=== PATIENT | female | born 1985 | race Caucasian/White ===

== ENCOUNTER 2016-12-19 02:20 | Inpatient (IN) | payer MEDICAID, OTHER ==
[~2016-12-19] VITALS: Ht 160 cm; Wt 58.9 kg
[2016-12-19 03:03] LABS: AUTOMATED NEUTROPHIL # 5.5 TH/MM3 (1.8-7.7); BASOPHIL % 0.4 % (0.0-2.0); EOSINOPHIL # 0.2 TH/MM3 (0-0.4); EOSINOPHIL % 2.2 % (0.0-4.0); HEMATOCRIT 31.8 % (35.0-46.0); HEMO FLAGS DIFF FINAL; LYMPH % 13.1 % (9.0-44.0); LYMPHOCYTE # 0.9 TH/MM3 (1.0-4.8); MEAN CELL VOLUME 91.2 FL (80.0-100.0); MEAN CORPUSCULAR HEMOGLOBIN 30.9 PG (27.0-34.0); MEAN CORPUSCULAR HGB CONC 33.9 % (32.0-36.0); MONO % 8.2 % (0.0-8.0); NEUT % 76.1 % (16.0-70.0); PLATELET COUNT 440 TH/MM3 (150-450); RED BLOOD COUNT 3.49 MIL/MM3 (4.00-5.30); RED CELL DISTRIBUTION WIDTH 12.7 % (11.6-17.2); WHITE BLOOD COUNT 7.3 TH/MM3 (4.0-11.0)
[2016-12-19 03:10] VITALS: BP 131/76; PULSE 99; RESP 16; TEMP 98; O2SAT 97
[2016-12-19 03:10] LABS: AMPHETAMINE, URINE POS (NEG); BARBITURATES, URINE NEG (NEG); COCAINE, URINE POS (NEG)
[2016-12-19 03:19] LABS: ALT (GPT) 39 U/L (10-53); ANION GAP 11 MEQ/L (5-15); AST (GOT) 43 U/L (15-37); BICARBONATE 23.5 MEQ/L (21.0-32.0); BLOOD UREA NITROGEN 8 MG/DL (7-18); CHLORIDE 106 MEQ/L (98-107); GLOMERULAR FILTRATION RATE 72 ML/MIN (>89); POTASSIUM 3.5 MEQ/L (3.5-5.1); SODIUM (NA) 140 MEQ/L (136-145)
--- NOTE | 2016-12-19 03:20 | PD ---
HPI Chief Complaint: Psychiatric Symptoms Time Seen by Provider: 02:27 Travel History International Travel<30 days: No Contact w/Intl Traveler<30days: No Traveled to known affect area: No History of Present Illness HPI The patient is 31 years old and arrives as a Gan act. She was found talking to herself in her room by her roommates. Police observed multiple bottles of pills in rte patient's room, unknown medications. In ER patient offers no specific medical complaint aside from pain from handcuffs. She denies HI/SI. PFSH Past Medical History Medical History: Unable to Obtain Immunizations Current: Yes ?: Not Past Surgical History Surgical History: Unable to Obtain Social History Alcohol Use: Yes Tobacco Use: Yes Substance Use: Yes (DENIES) Allergies-Medications (Allergen,Severity, Reaction): Coded Allergies: No Known Allergies (Unverified , 12/19/16) Reported Meds & Prescriptions Reported Meds & Active Scripts Active Active Prescriptions or Reported Medications Unobtainable Review of Systems Except as stated in HPI: all other systems reviewed are Neg Physical Exam Narrative GENERAL: 31 yo F, WNWD, NAD SKIN: Warm and dry. HEAD: Atraumatic. Normocephalic. EYES: Pupils equal and round. No scleral icterus. No injection or drainage. ENT: No nasal bleeding or discharge. Mucous membranes dry. NECK: Trachea midline. No JVD. CARDIOVASCULAR: Regular rate and rhythm. RESPIRATORY: No accessory muscle use. Clear to auscultation. Breath sounds equal bilaterally. GASTROINTESTINAL: Abdomen soft, non-tender, nondistended. Hepatic and splenic margins not palpable. MUSCULOSKELETAL: Extremities without clubbing, cyanosis, or edema. No obvious deformities. NEUROLOGICAL: Awake and alert. No obvious cranial nerve deficits. Motor grossly within normal limits. Five out of 5 muscle strength in the arms and legs. Normal speech. PSYCHIATRIC: Appropriate mood and affect; insight and judgment normal. Data Data Last Documented VS Vital Signs Date Time Temp Pulse Resp B/P Pulse Ox O2 Delivery O2 Flow Rate FiO2 12/19/16 03:10 98.0 99 16 131/76 97 VS reviewed Orders Complete Blood Count With Diff (12/19/16 02:37) Comprehensive Metabolic Panel (12/19/16 02:37) Drug Screen, Random Urine (12/19/16 02:37) Electrocardiogram (12/19/16 02:37) Alcohol (Ethanol) (12/19/16 02:37) Salicylates (Aspirin) (12/19/16 02:37) Tylenol (Acetaminophen) (12/19/16 02:37) Psych Screen (12/19/16 02:37) Sodium Chlor 0.9% 1000 Ml Inj (Ns 1000 M (12/19/16 03:30) Ed Urine Pregnancytest Poc (12/19/16 03:18) Cath For Specimen (12/19/16 03:18) Labs Laboratory Tests Test 12/19/16 02:50 White Blood Count 7.3 TH/MM3 Red Blood Count 3.49 MIL/MM3 Hemoglobin 10.8 GM/DL Hematocrit 31.8 % Mean Corpuscular Volume 91.2 FL Mean Corpuscular Hemoglobin 30.9 PG Mean Corpuscular Hemoglobin 33.9 % Concent Red Cell Distribution Width 12.7 % Platelet Count 440 TH/MM3 Mean Platelet Volume 6.9 FL Neutrophils (%) (Auto) 76.1 % Lymphocytes (%) (Auto) 13.1 % Monocytes (%) (Auto) 8.2 % Eosinophils (%) (Auto) 2.2 % Basophils (%) (Auto) 0.4 % Neutrophils # (Auto) 5.5 TH/MM3 Lymphocytes # (Auto) 0.9 TH/MM3 Monocytes # (Auto) 0.6 TH/MM3 Eosinophils # (Auto) 0.2 TH/MM3 Basophils # (Auto) 0.0 TH/MM3 CBC Comment DIFF FINAL Differential Comment Sodium Level 140 MEQ/L Potassium Level 3.5 MEQ/L Chloride Level 106 MEQ/L Carbon Dioxide Level 23.5 MEQ/L Anion Gap 11 MEQ/L Blood Urea Nitrogen 8 MG/DL Creatinine 0.91 MG/DL Estimat Glomerular Filtration 72 ML/MIN Rate Random Glucose 100 MG/DL Calcium Level 8.4 MG/DL Total Bilirubin 0.6 MG/DL Aspartate Amino Transf 43 U/L (AST/SGOT) Alanine Aminotransferase 39 U/L (ALT/SGPT) Alkaline Phosphatase 71 U/L Total Protein 6.8 GM/DL Albumin 3.9 GM/DL Salicylates Level 2.1 MG/DL Urine Opiates Screen NEG Acetaminophen Level LESS THAN 2.0 MCG/ML Urine Barbiturates Screen NEG Urine Amphetamines Screen POS Urine Benzodiazepines Screen POS Urine Cocaine Screen POS Urine Cannabinoids Screen NEG Ethyl Alcohol Level LESS THAN 3 MG/DL MDM Medical Decision Making Medical Screen Exam Complete: Yes Emergency Medical Condition: Yes Medical Record Reviewed: Yes Differential Diagnosis Altered mental status/psychosis due to infection/environmental exposure/ metabolic abnormality, polypharmacy, alcohol abuse/intoxication, illicit or prescribed drug abuse, malingering/secondary gain, non-organic psychiatric disease Narrative Course Presumably AMS is 2/2 to PSA. Intention of ingestion is unclear. Disposition per psychiatry service appreciated. Diagnosis Primary Impression: Altered mental status Qualified Code: R41.0 - Delirium Additional Impressions: Amphetamine delirium Cocaine abuse Benzodiazepine abuse Scripts Unable to Obtain Active Prescriptions or Reported Meds Esdras Mosley MD Dec 19, 2016 03:20
[2016-12-19 03:21] LABS: ACETAMINOPHEN LESS THAN 2.0 MCG/ML (10.0-30.0); ALKALINE PHOSPHATASE 71 U/L (45-117); TOTAL BILIRUBIN ADULT 0.6 MG/DL (0.2-1.0)
[2016-12-19] MEDS ORDERED: SODIUM CHLOR 0.9% 1000 ML INJ 1,000 ML IV ONE (03:30)
[2016-12-19 08:25] VITALS: BP 126/71; PULSE 98; RESP 16; O2SAT 99
--- NOTE | 2016-12-19 11:39 | EKG ---
Date Performed: 12/19/2016 Time Performed: 04:29:14 PTAGE: 31 years EKG: Sinus rhythm POSSIBLE RIGHT VENTRICULAR CONDUCTION DELAY BORDERLINE ECG WARNING: DATA QUALITY MAY AFFECT INTERPRE TATION NO PREVIOUS TRACING DOCTOR: Stephan Sr Interpretating Date/Time 12/19/2016 11:37:19
[2016-12-19] MEDS ORDERED: LORazepam 1 MG TAB PO ONE (12:15)
[2016-12-19 12:35] VITALS: BP 126/86; PULSE 92; RESP 20; O2SAT 98
[2016-12-19 13:30] VITALS: BP 142/79; PULSE 83; RESP 20; TEMP 99.6; O2SAT 100
[2016-12-19] MEDS ORDERED: [UNRECOGNIZED DRUG - CODE] PO (14:12)
[2016-12-19] MEDS ORDERED: CLON1TAB PO (14:18)
[2016-12-19] MEDS ORDERED: CEPH500C PO (14:20)
[2016-12-19] MEDS ORDERED: JOLI0.35 PO (14:22)
[2016-12-19] MEDS ORDERED: TRIA1MIS (14:25)
[2016-12-19] MEDS ORDERED: PROZ20CA11 PO (14:33)
[2016-12-19] MEDS ORDERED: LORazepam 1 MG TAB PO PRN (15:45)
[2016-12-19] MEDS ORDERED: ACETAMINOPHEN 325 MG TAB PO PRN (15:45)
[2016-12-19] MEDS ORDERED: BENZTROPINE MESYLATE 1 MG TAB PO PRN (15:45)
[2016-12-19] MEDS ORDERED: hydrOXYzine HCL 50 MG TAB PO PRN (15:45)
[2016-12-19] MEDS ORDERED: diphenhydrAMINE HCL 50 MG CAP PO PRN (15:45)
[2016-12-19] MEDS ORDERED: LORazepam 2 MG TAB PO PRN (15:45)
[2016-12-19] MEDS ORDERED: FLUMAZENIL 0.5 MG/5 ML VIAL IV PUSH PRN (15:45)
[2016-12-19] MEDS ORDERED: MAGNESIUM HYDROXIDE SUSP 30 ML CUP PO PRN (15:45)
[2016-12-19] MEDS ORDERED: LORazepam 2 MG/ML VIAL IM PRN ×4 (15:45)
[2016-12-19] MEDS ORDERED: BENZTROPINE MESYLATE 2 MG/2 ML VIAL IM PRN (15:45)
[2016-12-19] MEDS ORDERED: ALUMINUM/MAGNESIUM/SIMETH 30 ML CUP PO PRN (15:45)
--- NOTE | 2016-12-19 16:06 | HHI.HP ---
Provisional Diagnosis Admission Date Dec 19, 2016 at 15:31 [place] I. 1. 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 Polysubstance Abuse Bloom[place] II. Deferred Bloom[place] V. GAF is 30 presently Certification of Person's Competence To Provide Express and Informed Consent I have personally examined Saurabh Haque , a person being served at [facility] on, Dec 19, 2016 15:39. Express and informed consent means consent voluntarily given in writing, by a competent person, after sufficient explanation and disclosure of the subject matter involved to enable the person to make a knowing and willful decision without any element of force, fraud, deceit, duress, or other form of constraint or coercion. This person is 18 years of age or older, is not now known to be incompetent to consent to treatment with a guardian advocate, and does not have a health care surrogate or proxy currently making medical treatment decisions. I have found this person to be one of the following: [] Competent to provide express and informed consent, as defined above, for voluntary admission to this facility and is competent to provide express and informed consent for treatment. He/she has the consistent capacity to make well reasoned, willful, and knowing decisions concerning his or her medical or mental health treatment. The person fully and consistently understands the purpose of the admission for examination/placement and is fully capable of personally exercising all rights [place] [x] Incompetent to provide express and informed consent to voluntary admission, and this is incompetent to provide express and informed consent to treatment. The person must be transferred to involuntary status and a petition for a guardian advocate filed with the Circuit Court. [] Refusing to provide express and informed consent to voluntary admission but is competent to provide express and informed consent for treatment. The person must be discharged or transferred to involuntary status. Form shall be completed within 24 hours of a person's arrival at the receiving facility and filed in the clinical record of each person: 1. Admitted on a voluntary basis 2. Permitted to provide express and informed consent to his/her own treatment 3. Allowed to transfer from involuntary to voluntary status 4. Prior to permitting a person to consent to his or her own treatment after having been previously found incompetent to consent to treatment. History of Present Illness Capacity: Lacks Capacity HPI Ms. Haque is a 31 year-old female of uncertain past psychiatric history who presents under a Gan act from [facility]'s office alleging that the officer made contact with the patient in reference to a verbal altercation. One of the other residents at the home said that the patient may have taken some quantity of "narcotic" medications. Reviewing the electronic medical record, it appears this is patient's first visit to [facility]. Patient seen and examined. Chart reviewed. Case discussed with nurse in the J- pod. On my examination today, patient is quite confused and disorganized. She gives the date as 2015 but doesn't know the month or any other details in this regard. She gives the location as [place], [place]. Her affect is somewhat giggly and inappropriate to the situation. She appears frankly internally stimulated and asks that one point "are you talking about me or them?" gesturing to some unseen other people in the room. She denies any auditory hallucinations. Sleep is reportedly fair. She denies any SI or HI noting "I get angry but not to the point I want someone " but it is unclear that she is reliable to contract for safety. No ambrosio delusions. Psychiatric interview is limited by patient's degree of thought disorganization. Past psychiatric history: Patient reports prior diagnoses of depression. She denies a history of psychiatric admissions or suicide attempts but is likely an unreliable historian. In patient's belongings was found a prescription from Dr. Hicks at [facility] for Prozac dated 12/08. I did place a call over to [facility] trying to reach Dr. Hicks, but she was reportedly unavailable to take my call. I did speak with her admin secretary who is able to tell me that the patient has prior diagnoses of LUIS, MDD, PTSD and last saw Dr. Hicks's nurse on December 08 of this year when the Prozac prescription was issued. Patient's only prescribed psychotropics her Prozac and Klonopin. I did ask for patient's emergency contact information, but the admin secretary was unable to provide this to me. Awaiting a call back from patient's outpatient mental health provider. From nursing staff's itemization of patient's Klonopin, it appears that she may have been overtaking this medication by a pill or 2 a day. Review of Systems ROS Limitations: Psychotic, Poor Historian Other Limited ROS because of patient's degree of psychosis and thought disorganization. Past Psych History Psychological trauma history Unable to obtain because of patient's degree of thought disorganization Substance Abuse History Drugs/Alcohol past 12 months When I asked about substance use, patient replies: "Latasha is to God." Toxicology was positive for cocaine, amphetamines and benzodiazepines. Past Family Social History Coded Allergies: No Known Allergies (Unverified , 12/19/16) Reported Medications Fluoxetine (Prozac)20 Mg Cap30 Mg PO DAILY #30 CAP Ref 0 12/19/16 Triamcinolone Acetonide-[place] (Dermazone 0.1 %)1 Mis Mis 12/19/16 Norethindrone (Jolivette-35)0.35 Mg Tab1 Tab PO DAILY #1 PACK Ref 0 12/19/16 Cephalexin 500 Mg [id number] Mg PO Q6H Ref 0 12/19/16 Clonazepam 1 Mg Tab1 Mg PO BID PRN (ANXIETY) Ref 0 12/19/16 Ibuprofen ( Ibuprofen)200 Mg Tab Po As Directed 12/19/16 Current Medications Medications (Trade) Dose Ordered Sig/Harry Route Start Time Stop Time Status Last Admin (Benadryl) 50 mg HS PRN PO 12/19/16 15:45 (Tylenol) 650 mg Q4H PRN PO 12/19/16 15:45 (Milk Of Magnesia Liq) 30 ml DAILY PRN PO 12/19/16 15:45 (Mag-Al Plus Susp Liq) 30 ml Q6H PRN PO 12/19/16 15:45 (Habitrol 21 Mg Patch.24 Hr) 1 patch DAILY T-DERMAL 12/20/16 09:00 (Atarax) 50 mg Q6H PRN PO 12/19/16 15:45 (Cogentin) 1 mg Q12H PRN PO 12/19/16 15:45 (Cogentin Inj) 1 mg Q12H PRN IM 12/19/16 15:45 (Romazicon Inj) 0.2 mg Q1M PRN IV PUSH 12/19/16 15:45 UNV (Ativan) 1 mg Q4H PRN PO 12/19/16 15:45 UNV (Ativan Inj) 1 mg Q4H PRN IM 12/19/16 15:45 UNV (Ativan) 2 mg Q2H PRN PO 12/19/16 15:45 UNV (Ativan Inj) 2 mg Q2H PRN IM 12/19/16 15:45 UNV (Ativan Inj) 2 mg Q1H PRN IM 12/19/16 15:45 UNV (Ativan Inj) 2 mg Q15M PRN IM 12/19/16 15:45 UNV Miscellaneous Information 1 DAILY T-DERMAL 12/20/16 09:00 Family History Patient is unsure of her family psychiatric history Social History Patient seems to say that she lives alone but is unable to provide any meaningful social history otherwise because of her degree of psychiatric impairment at present. Patient's Strengths (min. 2) In a monitored setting. Verbally fluent. Physical Exam Physical examination completed by ED provider. On my examination today, the patient appears to be in no acute physical distress. She is well-nourished and well-developed. No motoric abnormalities noted. In particular no signs of GABAergic or other withdrawal noted. Vital Signs Vital Signs Date Time Temp Pulse Resp B/P Pulse Ox O2 Delivery O2 Flow Rate FiO2 12/19/16 13:30 99.6 83 20 142/79 100 Room Air Lab Results Item Value Date Time White Blood Count 7.3 TH/MM3 12/19/16 0250 Hemoglobin 10.8 GM/DL L 12/19/16 0250 Platelet Count 440 TH/MM3 12/19/16 0250 Sodium Level 140 MEQ/L 12/19/16 0250 Potassium Level 3.5 MEQ/L 12/19/16 0250 Carbon Dioxide Level 23.5 MEQ/L 12/19/16 0250 Chloride Level 106 MEQ/L 12/19/16 0250 Blood Urea Nitrogen 8 MG/DL 12/19/16 0250 Creatinine 0.91 MG/DL 12/19/16 0250 Aspartate Amino Transf (AST/SGOT) 43 U/L H 12/19/16 0250 Alanine Aminotransferase (ALT/SGPT) 39 U/L 12/19/16 0250 Alkaline Phosphatase 71 U/L 12/19/16 0250 Urine Amphetamines Screen POS H 12/19/16 0250 Urine Benzodiazepines Screen POS H 12/19/16 0250 Urine Cocaine Screen POS H 12/19/16 0250 Ethyl Alcohol Level LESS THAN 3 MG/DL 12/19/16 0250 ED POC negative. EKG reviewed. Mental Status Examination Patient is in hospital gown. She is somewhat disheveled but appears to be maintaining basic hygiene. She is awake and alert and oriented to person and [place] only. No motoric abnormalities noted. Speech is rambling but within normal limits for rate, tone and volume. Language and fund of knowledge are difficult to assess given her degree of thought disorganization. Difficult to assess mood but affect is somewhat inappropriate and giggly. Thought process disorganized. Associations are loose. No ambrosio delusional material noted. Appears frankly internally stimulated and endorses visual hallucinations as noted above. Denies suicidal or homicidal ideation but seems unreliable to contract for safety in her present state. Insight and judgment are currently poor. Assessment & Plan Problem List: (1) Other psychotic disorder not due to a substance or known physiological condition ICD Code: F28 (2) Other psychoactive substance abuse, uncomplicated ICD Code: F19.10 Assessment & Plan This is a 31-year-old female with prior psychiatric diagnoses as noted above who presents under a Gan act. Patient is presently floridly psychotic and internally stimulated. Thought process is disorganized. My suspicion is that she is experiencing a substance-induced psychotic disorder given that she is not have a prior history of psychosis. Patient is presently too psychotic to function safely in an outpatient level of care and so I will admit the patient to the inpatient psychiatric unit for observation and stabilization as well as safety. --Admit inpatient --Involuntary status. I've completed first opinion. Consult for second opinion. Request healthcare surrogate and guardian advocate. --CBC, CMP, hemoglobin A1c and lipid panel in the morning. I will also check an ammonia, TSH, HIV, RPR now and check a Head CT. --Hold off on scheduled antipsychotic for now as I do suspect this psychosis is substance-induced. --CIWA with Ativan for any benzo withdrawal. Seizure and fall precautions. --Atarax as needed for anxiety, Benadryl as needed for sleep, Cogentin as needed for EPS --Vitals every shift --Counselor to see and endeavor to obtain collateral. --Disposition planning --Estimated length of stay: 3-5 days Discharge Planning Pending psychiatric stabilization Request HC Surrog/Guard Advoc?: Yes Cristian Alex MD Dec 19, 2016 16:06
[2016-12-19] MEDS ORDERED: HALOPERIDOL LACTATE 5 MG/ML AMP ONE (17:53)
[2016-12-19] MEDS ORDERED: diphenhydrAMINE HCL 50 MG/ML VIAL ONE (17:53)
[2016-12-19] MEDS ORDERED: diphenhydrAMINE HCL 50 MG/ML VIAL IM ONE (18:45)
[2016-12-19] MEDS ORDERED: HALOPERIDOL 5 MG TAB PO ONE (18:45)
[2016-12-19] MEDS ORDERED: diphenhydrAMINE HCL 50 MG CAP PO ONE (18:45)
[2016-12-19] MEDS ORDERED: HALOPERIDOL LACTATE 5 MG/ML AMP IM ONE (18:45)
[2016-12-19] MEDS ORDERED: LORazepam 2 MG/ML VIAL PO ONE (18:45)
[2016-12-19] MEDS ORDERED: LORazepam 2 MG/ML VIAL IM ONE (18:45)
[2016-12-19 19:49] VITALS: BP 113/68; PULSE 84; RESP 16; TEMP 97.9; O2SAT 98
--- NOTE | 2016-12-19 22:27 | RADRPT ---
EXAM DATE/TIME: 12/19/2016 21:59 [facility] COMPARISON: No previous studies available for comparison. INDICATIONS : Altered mental status. RADIATION DOSE: 56.35 CTDIvol (mGy) MEDICAL HISTORY : Psychosis. SURGICAL HISTORY : None. ENCOUNTER: Initial ACUITY: 1 day PAIN SCALE: 0/10 LOCATION: cranial TECHNIQUE: Multiple contiguous axial images were obtained of the head. Using automated exposure control and adj ustment of the mA and/or kV according to patient size, radiation dose was kept as low as reasonably a chievable to obtain optimal diagnostic quality images. FINDINGS: CEREBRUM: The ventricles are normal for age. No evidence of midline shift, mass lesion, hemorrhage or acute in farction. No extra-axial fluid collections are seen. POSTERIOR FOSSA: The cerebellum and brainstem are intact. The 4th ventricle is midline. The cerebellopontine angle i s unremarkable. EXTRACRANIAL: The visualized portion of the orbits is intact. SKULL: The calvaria is intact. No evidence of skull fracture. CONCLUSION: Normal examination. Armin Laird MD on December 19, 2016 at 22:25 Board Certified Radiologist. This report was verified electronically.
[2016-12-20 05:09] VITALS: BP 90/55; PULSE 78; RESP 16; TEMP 97.8; O2SAT 96
[2016-12-20 07:11] LABS: AUTOMATED NEUTROPHIL # 1.9 TH/MM3 (1.8-7.7); BASOPHIL % 0.6 % (0.0-2.0); EOSINOPHIL # 0.2 TH/MM3 (0-0.4); HEMATOCRIT 30.8 % (35.0-46.0); HEMO FLAGS DIFF FINAL; LYMPH % 32.3 % (9.0-44.0); LYMPHOCYTE # 1.2 TH/MM3 (1.0-4.8); MEAN CELL VOLUME 93.2 FL (80.0-100.0); MEAN CORPUSCULAR HEMOGLOBIN 30.7 PG (27.0-34.0); MEAN CORPUSCULAR HGB CONC 32.9 % (32.0-36.0); NEUT % 51.1 % (16.0-70.0); PLATELET COUNT 365 TH/MM3 (150-450); WHITE BLOOD COUNT 3.8 TH/MM3 (4.0-11.0)
[2016-12-20 07:52] LABS: ALKALINE PHOSPHATASE 62 U/L (45-117); ALT (GPT) 37 U/L (10-53); ANION GAP 7 MEQ/L (5-15); AST (GOT) 28 U/L (15-37); BICARBONATE 28.7 MEQ/L (21.0-32.0); BLOOD UREA NITROGEN 8 MG/DL (7-18); CHLORIDE 106 MEQ/L (98-107); GLOMERULAR FILTRATION RATE 76 ML/MIN (>89); HDL CHOLESTEROL 68.3 MG/DL (40.0-60.0); LDL CHOLESTEROL 45 MG/DL (0-99); POTASSIUM 3.7 MEQ/L (3.5-5.1); SODIUM (NA) 142 MEQ/L (136-145); TOTAL BILIRUBIN ADULT 0.5 MG/DL (0.2-1.0)
[2016-12-20] MEDS: NICOTINE 21 MG/24 HR PATCH T-DERMAL SCH (09:00)
[2016-12-20] MEDS: REMOVE OLD NICOTINE PATCH T-DERMAL SCH ×2 (09:00→11:48)
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
[2016-12-20] MEDS ORDERED: NORETHINDRONE PO SCH (10:00)
[2016-12-20] MEDS ORDERED: CEPHALEXIN MONOHYDRATE 500 MG CAP PO SCH (10:00)
[2016-12-20 10:33] LABS: HEMOGLOBIN A1a 1.1 %; HEMOGLOBIN A1b 1.2 %; HEMOGLOBIN Ao 87.6 %; HEMOGLOBIN LA1C 1.8 %
--- NOTE | 2016-12-20 10:33 | PD.CONS ---
Provisional Diagnosis Admission Date Dec 19, 2016 at 15:31 [place] I. 1. 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 Polysubstance Abuse [place] II. Deferred [place] V. GAF is 30 presently History of Present Illness Service Psychiatry Consult Requested By Primary Care Physician Kun Stoner HPI Ms. Haque is a 31 year-old female of uncertain past psychiatric history who presents under a Gan act from [facility]'s office alleging that the officer made contact with the patient in reference to a verbal altercation. One of the other residents at the home said that the patient may have taken some quantity of "narcotic" medications. Reviewing the electronic medical record, it appears this is patient's first visit to [place]. Patient seen and examined. Chart reviewed. Case discussed with nurse in the J- pod. On my examination today, patient is quite confused and disorganized. She gives the date as 2015 but doesn't know the month or any other details in this regard. She gives the location as [place], [place]. Her affect is somewhat giggly and inappropriate to the situation. She appears frankly internally stimulated and asks that one point "are you talking about me or them?" gesturing to some unseen other people in the room. She denies any auditory hallucinations. Sleep is reportedly fair. She denies any SI or HI noting "I get angry but not to the point I want someone " but it is unclear that she is reliable to contract for safety. No ambrosio delusions. Psychiatric interview is limited by patient's degree of thought disorganization. Past psychiatric history: Patient reports prior diagnoses of depression. She denies a history of psychiatric admissions or suicide attempts but is likely an unreliable historian. In patient's belongings was found a prescription from Dr. Hicks at [facility] for Prozac dated 12/08. I did place a call over to [facility] trying to reach Dr. Hicks, but she was reportedly unavailable to take my call. I did speak with her banquet bartender who is able to tell me that the patient has prior diagnoses of LIUS, MDD, PTSD and last saw Dr. Hicks's nurse on December 08 of this year when the Prozac prescription was issued. Patient's only prescribed psychotropics her Prozac and Klonopin. I did ask for patient's emergency contact information, but the banquet bartender was unable to provide this to me. Awaiting a call back from patient's outpatient mental health provider. From nursing staff's itemization of patient's Klonopin, it appears that she may have been overtaking this medication by a pill or 2 a day 12/20/16 Above note dictated by Dr. alex reviewed and agreed with. Patient seen on unit with nurse Eusebia a medical student Mary. Patient labile tearful depressed denying any knowledge of the results of her urine toxicology. She denies suicidality homicidality voices or vision at the present time. Dr. Alex is signed first opinion petition supporting Gan act. I agree. Patient meets criteria for further assessment and observation on an involuntary basis. Thus I will cosign second opinion petition supporting Gan act. Past Family Social History Coded Allergies: No Known Allergies (Unverified , 12/19/16) Reported Medications Fluoxetine (Prozac)20 Mg Cap30 Mg PO DAILY #30 CAP Ref 0 12/19/16 Triamcinolone Acetonide-Silico (Dermazone 0.1 %)1 Mis Mis 12/19/16 Norethindrone (Jolivette-35)0.35 Mg Tab1 Tab PO DAILY #1 PACK Ref 0 12/19/16 Cephalexin 500 Mg Hyd854 Mg PO Q6H Ref 0 12/19/16 Clonazepam 1 Mg Tab1 Mg PO BID PRN (ANXIETY) Ref 0 12/19/16 Ibuprofen (Hm Ibuprofen)200 Mg Tab Po As Directed 12/19/16 Current Medications Medications (Trade) Dose Ordered Sig/Harry Route Start Time Stop Time Status Last Admin (Benadryl) 50 mg HS PRN PO 12/19/16 15:45 (Tylenol) 650 mg Q4H PRN PO 12/19/16 15:45 (Milk Of Magnesia Liq) 30 ml DAILY PRN PO 12/19/16 15:45 (Mag-Al Plus Susp Liq) 30 ml Q6H PRN PO 12/19/16 15:45 (Habitrol 21 Mg Patch.24 Hr) 1 patch DAILY T-DERMAL 12/20/16 09:00 (Atarax) 50 mg Q6H PRN PO 12/19/16 15:45 (Cogentin) 1 mg Q12H PRN PO 12/19/16 15:45 (Cogentin Inj) 1 mg Q12H PRN IM 12/19/16 15:45 (Romazicon Inj) 0.2 mg Q1M PRN IV PUSH 12/19/16 15:45 (Ativan) 1 mg Q4H PRN PO 12/19/16 15:45 (Ativan Inj) 1 mg Q4H PRN IM 12/19/16 15:45 (Ativan) 2 mg Q2H PRN PO 12/19/16 15:45 (Ativan Inj) 2 mg Q2H PRN IM 12/19/16 15:45 (Ativan Inj) 2 mg Q1H PRN IM 12/19/16 15:45 (Ativan Inj) 2 mg Q15M PRN IM 12/19/16 15:45 Miscellaneous Information 1 DAILY T-DERMAL 12/20/16 09:00 (Keflex) 500 mg Q6H PO 12/20/16 10:00 Patient Own Medication PT OWN MED: Norethindrone (Jolivette-... DAILY PO 12/20/16 10:00 Hold Patient's Strengths (min. 2) In a monitored setting. Verbally fluent. Physical Exam Vital Signs Vital Signs Date Time Temp Pulse Resp B/P Pulse Ox O2 Delivery O2 Flow Rate FiO2 12/20/16 05:09 97.8 78 16 90/55 96 12/19/16 13:30 Room Air Mental Status Examination Alert oriented white female appearing her stated age clean and neat cooperative with fair eye contact seen with nurse and medical student Coin Appearance Clean and neat Speech: Unremarkable, Pressured (mildly), Rapid Orientation: x3 Memory: Impaired (describe) (states does not remember taking drugs that would lead to her urine toxicology results) Thought Process: Logical Thought Content: Unremarkable Hallucination Type: None Attention and Concentration: Good Suicidal Ideation: No Previous Suicide Attempts: No Homicidal Ideation: No Previous Homicide Attempts: No Insight: Fair Judgement: Poor Affect: Other (increase range and intensity) Mood: Euthymic (to moderately dysphoric) Motor Activity: Normal gait Assessment & Plan Problem List: (1) Other psychotic disorder not due to a substance or known physiological condition ICD Code: F28 (2) Other psychoactive substance abuse, uncomplicated ICD Code: F19.10 Assessment & Plan Estimated LOS: days Request HC Surrog/Guard Advoc?: Yes Ashok De La Torre MD Dec 20, 2016 10:32
[2016-12-20] MEDS ORDERED: CLIN150 PO (16:20)
--- NOTE | 2016-12-20 16:38 | PD.CONS ---
HPI Service [facility] Consult Requested By Dr. Alex Reason for Consult Anemia, elevated TSH, knee wound on Keflex Primary Care Physician Kun Stoner Diagnoses: History of Present Illness This 31-year-old female patient who denies past medical history. Patient is currently inpatient psychiatric center she was having hallucinations yesterday. We have been consulted for assistance with medical management of anemia, elevated TSH and left knee wound. Patient reports she took an unknown substance on 12/18/2016 and presented to the hospital on 12/19/2016 because of hallucinations. Patient denies hallucinations at this time. Patient's TSH found to be 9.010 with a free T4 of 1.17. Patient denies prior history of thyroid disorder. Toxicology screen positive for cocaine, benzodiazepine and amphetamines. Patient also noted to have open wound left knee with small amount of white discharge present. Patient reports proximally 10 days ago she fell on the concrete and at first the wound was beginning to scab over that for the past 2-3 days has had this white discharge. Patient reports minimal pain more irritated feeling. Mild erythema wound edges. Patient denies chest pain shortness of breath nausea vomiting diarrhea constipation fevers chills cough congestion cold or heat intolerance changes in weight or changes in appetite. Review of Systems Other All other systems reviewed and negative except as mentioned in history of present illness. Past Family Social History Allergies: Coded Allergies: No Known Allergies (Unverified , 12/19/16) Past Medical History Denies prior medical history Past Surgical History Denies surgical history does report a fractured left wrist as a child which was treated with cast Reported Medications Prozac (Fluoxetine HCl) 20 Mg Cap 30 Mg PO DAILY Dermazone 0.1 % (Triamcinolone Acetonide-Silico) 1 Mis Mis Jolivette-35 (Norethindrone) 0.35 Mg Tab 1 Tab PO DAILY Cephalexin 500 Mg Cap 500 Mg PO Q6H Clonazepam 1 Mg Tab 1 Mg PO BID PRN Hm Ibuprofen (Ibuprofen) 200 Mg Tab PO DIRECTED Active Ordered Medications Current Medications Medications (Trade) Dose Ordered Sig/Harry Route Start Time Stop Time Status Last Admin (Benadryl) 50 mg HS PRN PO 12/19/16 15:45 (Tylenol) 650 mg Q4H PRN PO 12/19/16 15:45 (Milk Of Magnesia Liq) 30 ml DAILY PRN PO 12/19/16 15:45 (Mag-Al Plus Susp Liq) 30 ml Q6H PRN PO 12/19/16 15:45 (Habitrol 21 Mg Patch.24 Hr) 1 patch DAILY T-DERMAL 12/20/16 09:00 (Atarax) 50 mg Q6H PRN PO 12/19/16 15:45 (Cogentin) 1 mg Q12H PRN PO 12/19/16 15:45 (Cogentin Inj) 1 mg Q12H PRN IM 12/19/16 15:45 (Romazicon Inj) 0.2 mg Q1M PRN IV PUSH 12/19/16 15:45 (Ativan) 1 mg Q4H PRN PO 12/19/16 15:45 (Ativan Inj) 1 mg Q4H PRN IM 12/19/16 15:45 (Ativan) 2 mg Q2H PRN PO 12/19/16 15:45 (Ativan Inj) 2 mg Q2H PRN IM 12/19/16 15:45 (Ativan Inj) 2 mg Q1H PRN IM 12/19/16 15:45 (Ativan Inj) 2 mg Q15M PRN IM 12/19/16 15:45 Miscellaneous Information 1 DAILY T-DERMAL 12/20/16 09:00 Patient Own Medication PT OWN MED: Norethindrone (Jolivette-... DAILY PO 12/20/16 10:00 Hold (Cleocin) 300 mg Q6HR PO 12/20/16 18:00 12/30/16 23:00 (Polysporin Oint) 1 applic Q12HR TOPICAL 12/20/16 21:00 12/25/16 20:59 Family History Father secondary to testicular cancer Social History EtOH drinks approximally once a week Denies illicit drug use Smokes one pack of cigarettes per week for 5-6 years total Physical Exam Vital Signs Vital Signs Date Time Temp Pulse Resp B/P Pulse Ox O2 Delivery O2 Flow Rate FiO2 12/20/16 05:09 97.8 78 16 90/55 96 12/19/16 19:49 97.9 84 16 113/68 98 Physical Exam GENERAL: This is a well-nourished, well-developed patient, in no acute distress. SKIN: open wound left knee with small amount of white discharge present. Patient reports proximally 10 days ago she fell on the concrete and at first the wound was beginning to scab over that for the past 2-3 days has had this white discharge. Also open wounds left hand fourth digit healing. HEAD: Atraumatic. Normocephalic. No temporal or scalp tenderness. EYES: Extraocular motions intact. No scleral icterus. No injection or drainage. ENT: Nose without bleeding, purulent drainage or septal hematoma. Throat without erythema, tonsillar hypertrophy or exudate. Uvula midline. Airway patent. NECK: Trachea midline. No JVD or lymphadenopathy. Supple, nontender, no meningeal signs. CARDIOVASCULAR: Regular rate and rhythm without murmurs, gallops, or rubs. RESPIRATORY: Clear to auscultation. Breath sounds equal bilaterally. No wheezes , rales, or rhonchi. GASTROINTESTINAL: Abdomen soft, non-tender, nondistended. MUSCULOSKELETAL: Extremities without clubbing, cyanosis, or edema. No joint tenderness, effusion, or edema noted. No calf tenderness. Negative Homans sign bilaterally. NEUROLOGICAL: Awake and alert. No focal deficits identified. Motor and sensory grossly within normal limits. Five out of 5 muscle strength in all muscle groups. Normal speech. Laboratory Laboratory Tests Test 12/19/16 12/20/16 21:39 06:37 Ammonia 17 Thyroid Stimulating Hormone 9.010 3rd Gen Rapid Plasma Reagin NON-REACTIVE HIV (1&2) Antibody NEGATIVE White Blood Count 3.8 Red Blood Count 3.30 Hemoglobin 10.1 Hematocrit 30.8 Mean Corpuscular Volume 93.2 Mean Corpuscular Hemoglobin 30.7 Mean Corpuscular Hemoglobin 32.9 Concent Red Cell Distribution Width 13.0 Platelet Count 365 Mean Platelet Volume 6.8 Neutrophils (%) (Auto) 51.1 Lymphocytes (%) (Auto) 32.3 Monocytes (%) (Auto) 11.0 Eosinophils (%) (Auto) 5.0 Basophils (%) (Auto) 0.6 Neutrophils # (Auto) 1.9 Lymphocytes # (Auto) 1.2 Monocytes # (Auto) 0.4 Eosinophils # (Auto) 0.2 Basophils # (Auto) 0.0 CBC Comment DIFF FINAL Differential Comment Sodium Level 142 Potassium Level 3.7 Chloride Level 106 Carbon Dioxide Level 28.7 Anion Gap 7 Blood Urea Nitrogen 8 Creatinine 0.87 Estimat Glomerular Filtration 76 Rate Random Glucose 93 Hemoglobin A1c 4.8 Calcium Level 8.1 Total Bilirubin 0.5 Aspartate Amino Transf 28 (AST/SGOT) Alanine Aminotransferase 37 (ALT/SGPT) Alkaline Phosphatase 62 Total Protein 5.7 Albumin 3.2 Triglycerides Level 84 Cholesterol Level 130 LDL Cholesterol 45 HDL Cholesterol 68.3 Cholesterol/HDL Ratio 1.90 Free Thyroxine 1.17 Result Diagram: 12/20/16 0637 12/20/16 0637 Assessment and Plan Assessment and Plan This 31-year-old female patient who denies past medical history. Patient is currently inpatient psychiatric center she was having hallucinations yesterday. We have been consulted for assistance with medical management of anemia, elevated TSH and left knee wound. Patient reports she took an unknown substance on 12/18/2016 and presented to the hospital on 12/19/2016 because of hallucinations. Patient denies hallucinations at this time. Patient's TSH found to be 9.010 with a free T4 of 1.17. Patient denies prior history of thyroid disorder. Toxicology screen positive for cocaine, benzodiazepine and amphetamines. Elevated TSH with normal T4 Possibly reactive to cocaine use Recommend patient follow up with PCP after discharge for further monitoring Wound left knee, healing wounds left hand fourth digit DC Keflex start clindamycin 10 days Polysporin ointment to left knee wound with dry dressing every 12 hours Anemia 10.7 on admission repeat 10.1 will recheck in a.m. likely chronic Polysubstance use Counseled and encouraged to abstain from EtOH use, tobacco use as well as illicit drug use CIWA protocol per psych team Psychiatric disorder-management per psychiatric team DVT prophylaxis patient is ambulatory Discussed plan of care with patient and RN Written by Landy Jacques, acting as scribe for Dr. Fox on 12/20/16 at 16 :38. The documentation accurately reflects the work performed [id number] by neDr. Fox on 12/20/16 at 16:38. Landy Jacques Dec 20, 2016 16:38 Parker Fox MD Dec 30, 2016 15:52
[2016-12-20] MEDS: CLINDAMYCIN 150 MG CAP PO SCH (17:13)
[2016-12-20] MEDS: BACITRACIN/POLYMYXIN B 15 GM TUBE TOPICAL SCH (20:11)
[2016-12-21 05:47] VITALS: BP 90/51; PULSE 91; RESP 18; TEMP 97.6; O2SAT 98
[2016-12-21] MEDS: CLINDAMYCIN 150 MG CAP PO SCH ×4 (06:00→18:22)
[2016-12-21 07:44] LABS: HEMATOCRIT 30.8 % (35.0-46.0); MEAN CELL VOLUME 92.5 FL (80.0-100.0); MEAN CORPUSCULAR HEMOGLOBIN 31.7 PG (27.0-34.0); MEAN CORPUSCULAR HGB CONC 34.3 % (32.0-36.0); PLATELET COUNT 371 TH/MM3 (150-450); RED BLOOD COUNT 3.33 MIL/MM3 (4.00-5.30); RED CELL DISTRIBUTION WIDTH 12.8 % (11.6-17.2); REVIEW FLAG FINAL; WHITE BLOOD COUNT 5.1 TH/MM3 (4.0-11.0)
[2016-12-21] MEDS: BACITRACIN/POLYMYXIN B 15 GM TUBE TOPICAL SCH (08:26)
[2016-12-21] MEDS: NICOTINE 21 MG/24 HR PATCH T-DERMAL SCH (08:26)
[2016-12-21] MEDS: REMOVE OLD NICOTINE PATCH T-DERMAL SCH (09:00)
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
== END 2016-12-21 18:35 | disposition home or self-care (01) | DRG 897 ==
LOC: NEPC 02:20 → NEDA 15:31 → H270 19:44 → H260 12-20 20:15
PROVIDERS: ADMIT Psychiatry & Neurology Psychiatry; ATTEND Psychiatry & Neurology Psychiatry
DX: F19.159 Other psychoactive substance abuse with psychoactive substance-induced psychotic disorder, unspecified (principal); F14.10 Cocaine abuse, uncomplicated; F13.239 Sedative, hypnotic or anxiolytic dependence with withdrawal, unspecified; F29 Unspecified psychosis not due to a substance or known physiological condition; D64.9 Anemia, unspecified; S81.002A Unspecified open wound, left knee, initial encounter; F43.10 Post-traumatic stress disorder, unspecified; F17.210 Nicotine dependence, cigarettes, uncomplicated; W18.30XA Fall on same level, unspecified, initial encounter; Y92.9 Unspecified place or not applicable
CPT/HCPCS: 70450; 80053; 80061; 80307; 80320; 80329; 82140; 83036; 84439; 84443; 84703; 85025; 85027; 86592; 86703; 93005; 96360; G0480; J1200; J1630; J2060; J7030; P9612; Q0163

== ENCOUNTER 2017-08-03 08:28 | Emergency (ER) | payer OTHER, MEDICAID ==
[~2017-08-03] VITALS: Ht 160 cm; Wt 57.0 kg
[~2017-08-03 08:28] MED LIST: CLIN150 PO; CLON1TAB PO; JOLI0.35 PO; PROZ20CA11 PO; TRIA1MIS; [UNRECOGNIZED DRUG - CODE] PO
[2017-08-03 08:30] VITALS: BP 118/72; PULSE 77; RESP 15; TEMP 98.3; O2SAT 98
--- NOTE | 2017-08-03 08:57 | PD ---
HPI Chief Complaint: Dizziness Time Seen by Provider: 08:39 Travel History International Travel<30 days: No Contact w/Intl Traveler<30days: No Traveled to known affect area: No History of Present Illness HPI 31-year-old female states that she is off of all for her home medications including her Prozac because she hasn't gotten with her doctor to get them refilled. She states she follows with [facility] and has a hard time getting in and missed her last appointment. She states that she's been having intermittent dizzy spells and wanted to make sure something else wasn't going on. She states she felt like she was gonna pass out but did not. She states her last menstrual cycle was 2 days ago and happy. She states she's not bleeding right now. She states she felt like she slept on her elbow wrong and is having tingling from her elbow down since this morning as well. She denies other concurrent complaints. She specifically denies any chest pain, shortness of breath, weakness, trauma, suicidal or homicidal ideation or other concerns. PFSH Past Medical History Anxiety: Yes Depression: Yes Cancer: No Cardiovascular Problems: No Diabetes: No Diminished Hearing: No Headaches: No Musculoskeletal: No Psychiatric: Yes Reproductive: No Respiratory: No Immunizations Current: Yes Seizures: No Tetanus Vaccination: < 5 Years Influenza Vaccination: No ?: Not LMP: 08/01/17 : 1 Para: 1 Past Surgical History Surgical History: No Previous Surgery Social History Alcohol Use: Yes (OCASSIONALLY) Tobacco Use: Yes (OCASSIONALLY) Substance Use: Yes (PSA PER POSITIVE DRUG SCREEN) Allergies-Medications (Allergen,Severity, Reaction): Coded Allergies: No Known Allergies (Unverified , 08/03/17) Reported Meds & Prescriptions Reported Meds & Active Scripts Active Vistaril (Hydroxyzine Pamoate) 25 Mg Cap 25 Mg PO HS PRN Reported Prozac (Fluoxetine HCl) 20 Mg Cap 40 Mg PO DAILY Review of Systems Except as stated in HPI: all other systems reviewed are Neg Physical Exam Narrative GENERAL: Well-nourished, well-developed patient. Well-appearing SKIN: Warm and dry. HEAD: Normocephalic and atraumatic. EYES: No injection or drainage. ENT: No nasal drainage noted. NECK: Supple, trachea midline. CARDIOVASCULAR: Regular rate and rhythm RESPIRATORY: Breath sounds equal bilaterally. No accessory muscle use. GASTROINTESTINAL: Abdomen soft, non-tender, nondistended. EXTREMITIES: No edema. BACK: Nontender without obvious deformity. NEUROLOGICAL: Awake and alert. Motor and sensory grossly within normal limits. Normal speech. 5 out of 5 in all 4 extremities, equal grasp bilaterally Data Data Last Documented VS Vital Signs Date Time Temp Pulse Resp B/P (MAP) Pulse Ox O2 Delivery O2 Flow Rate FiO2 08/03/17 12:04 69 16 153/72 (99) 100 08/03/17 11:00 Room Air 08/03/17 08:30 98.3 Orders Orders Magnesium (Mg) (08/03/17 08:51) Phosphorus (Po4) (08/03/17 08:51) Basic Metabolic Panel (Bmp) (08/03/17 08:51) Comprehensive Metabolic Panel (08/03/17 08:51) Ed Urine Pregnancytest Poc (08/03/17 08:51) Hydroxyzine Pamoate (Vistaril) (08/03/17 09:00) Complete Blood Count With Diff (08/03/17 10:17) Labs Laboratory Tests Test 08/03/17 08:50 White Blood Count 8.2 TH/MM3 Red Blood Count 4.10 MIL/MM3 Hemoglobin 12.3 GM/DL Hematocrit 36.7 % Mean Corpuscular Volume 89.6 FL Mean Corpuscular Hemoglobin 29.9 PG Mean Corpuscular Hemoglobin Concent 33.4 % Red Cell Distribution Width 13.9 % Platelet Count 396 TH/MM3 Mean Platelet Volume 8.1 FL Neutrophils (%) (Auto) 72.2 % Lymphocytes (%) (Auto) 16.4 % Monocytes (%) (Auto) 6.7 % Eosinophils (%) (Auto) 4.2 % Basophils (%) (Auto) 0.5 % Neutrophils # (Auto) 5.9 TH/MM3 Lymphocytes # (Auto) 1.3 TH/MM3 Monocytes # (Auto) 0.5 TH/MM3 Eosinophils # (Auto) 0.3 TH/MM3 Basophils # (Auto) 0.0 TH/MM3 CBC Comment DIFF FINAL Differential Comment Blood Urea Nitrogen 13 MG/DL Creatinine 0.99 MG/DL Random Glucose 94 MG/DL Total Protein 7.0 GM/DL Albumin 3.6 GM/DL Calcium Level 8.2 MG/DL Phosphorus Level 3.2 MG/DL Magnesium Level 1.9 MG/DL Alkaline Phosphatase U/L Aspartate Amino Transf (AST/SGOT) 14 U/L Alanine Aminotransferase (ALT/SGPT) 20 U/L Total Bilirubin 0.4 MG/DL Sodium Level 139 MEQ/L Potassium Level 4.0 MEQ/L Chloride Level 106 MEQ/L Carbon Dioxide Level 28.1 MEQ/L Anion Gap 5 MEQ/L Estimat Glomerular Filtration Rate 65 ML/MIN MDM Medical Decision Making Medical Screen Exam Complete: Yes Emergency Medical Condition: Yes Medical Record Reviewed: Yes (past history confirmed) Interpretation(s) CBC & BMP Diagram 08/03/17 08:50 Total Protein 7.0, Albumin 3.6, Calcium Level 8.2 L, Phosphorus Level 3.2, Magnesium Level 1.9, Aspartate Amino Transf (AST/SGOT) 14 L, Alanine Aminotransferase (ALT/SGPT) 20, Total Bilirubin 0.4 Differential Diagnosis Anemia, electrolyte abnormality, , anxiety Narrative Course Will check lab work and reevaluate ed workup no acute, Patient denies any new complaints, offered to talk to our psychiatry team but she states that she feels comfortable with outpatient follow -up. all questions answered. Patient knows that follow up is incumbent on them and to return to the emergency room immediately if new or worsening symptoms develop. Patient given strict return precautions, vitals reviewed and are normal , happy lab work without emergent process Diagnosis Primary Impression: Dizziness Patient Instructions: General Instructions Additional Instructions: return as needed, follow with mendel arteaga this week, vistaril as needed Med/Other Pt SpecificInfo: Prescription(s) given Scripts Hydroxyzine Pamoate (Vistaril) 25 Mg Cap 25 MG PO HS Y for ANXIETY, #10 CAP 0 Refills Prov: Taisha Sinha MD 08/03/17 Disposition: 01 DISCHARGE HOME Condition: Stable Taisha Sinha MD Aug 03, 2017 08:57
[2017-08-03] MEDS ORDERED: hydrOXYzine PAMOATE 25 MG CAP PO ONE (09:00)
[2017-08-03 10:10] LABS: ALT (GPT) 20 U/L (10-53); ANION GAP 5 MEQ/L (5-15); BICARBONATE 28.1 MEQ/L (21.0-32.0); BLOOD UREA NITROGEN 13 MG/DL (7-18); CHLORIDE 106 MEQ/L (98-107); GLOMERULAR FILTRATION RATE 65 ML/MIN (>89); MAGNESIUM 1.9 MG/DL (1.5-2.5); SODIUM (NA) 139 MEQ/L (136-145)
[2017-08-03 10:25] LABS: AUTOMATED NEUTROPHIL # 5.9 TH/MM3 (1.8-7.7); BASOPHIL % 0.5 % (0.0-2.0); EOSINOPHIL # 0.3 TH/MM3 (0-0.4); EOSINOPHIL % 4.2 % (0.0-4.0); HEMATOCRIT 36.7 % (35.0-46.0); HEMO FLAGS DIFF FINAL; LYMPH % 16.4 % (9.0-44.0); LYMPHOCYTE # 1.3 TH/MM3 (1.0-4.8); MEAN CELL VOLUME 89.6 FL (80.0-100.0); MEAN CORPUSCULAR HEMOGLOBIN 29.9 PG (27.0-34.0); MEAN CORPUSCULAR HGB CONC 33.4 % (32.0-36.0); MONO % 6.7 % (0.0-8.0); NEUT % 72.2 % (16.0-70.0); PLATELET COUNT 396 TH/MM3 (150-450); RED CELL DISTRIBUTION WIDTH 13.9 % (11.6-17.2); WHITE BLOOD COUNT 8.2 TH/MM3 (4.0-11.0)
[2017-08-03 11:00] VITALS: BP 169/59; PULSE 62; RESP 16; O2SAT 98
[2017-08-03 11:28] LABS: AST (GOT) 14 U/L (15-37); TOTAL BILIRUBIN ADULT 0.4 MG/DL (0.2-1.0)
[2017-08-03] MEDS ORDERED: VIST25CA PO (11:44)
[2017-08-03 11:47] LABS: ALKALINE PHOSPHATASE ND U/L (45-117)
[2017-08-03 12:04] VITALS: BP 153/72
== END 2017-08-03 12:08 | disposition home or self-care (01) ==
LOC: NEPC 08:28
DX: R42 Dizziness and giddiness (principal)
CPT/HCPCS: 80053; 83735; 84100; 84703; 85025; 99283; Q0177

== ENCOUNTER 2017-11-13 12:23 | Emergency (ER) | payer MEDICAID, OTHER ==
[~2017-11-13] VITALS: Ht 160 cm; Wt 55.0 kg
[~2017-11-13 12:23] MED LIST changes: -CLIN150 PO; -CLON1TAB PO; -JOLI0.35 PO; -TRIA1MIS; +VIST25CA PO; -[UNRECOGNIZED DRUG - CODE] PO
[2017-11-13 12:25] VITALS: BP 110/61; PULSE 77; RESP 18; TEMP 98.7; O2SAT 99
[2017-11-13] MEDS ORDERED: SODIUM CHLOR 0.9% 1000 ML INJ 1,000 ML IV SCH (12:42)
[2017-11-13] MEDS ORDERED: KETOROLAC TROMETHAMINE 30 MG/ML (IVP) VIAL IVP ONE (12:45)
[2017-11-13] MEDS ORDERED: MORPHINE SULFATE 4 MG/ML INJ IV PUSH ONE (12:45)
[2017-11-13] MEDS ORDERED: ONDANSETRON HCL 4 MG/2 ML VIAL IVP ONE (12:45)
[2017-11-13] MEDS ORDERED: SODIUM CHLORIDE 0.9% FLUSH 10 ML FLUSH IV FLUSH PRN (12:45)
--- NOTE | 2017-11-13 12:51 | PD ---
HPI Chief Complaint: Abdominal Pain Time Seen by Provider: 12:34 Travel History International Travel<30 days: No Contact w/Intl Traveler<30days: No Traveled to known affect area: No History of Present Illness HPI The patient is a 32-year-old female who presents to the emergency department for abdominal pain. The patient states she was seen at another hospital in October for right lower quadrant abdominal pain, had a CT the abdomen and pelvis was diagnosed with a ruptured ovarian cyst. The patient states that pain improved. However, several days ago she developed some abdominal pain which is been transient, but now is located in the right upper quadrant. The patient denies any nausea, vomiting, or postprandial symptoms. The patient states the pain is located right upper quadrant, worse with inspiration, also worse with coughing and sneezing. The patient states initially the pain was transient, but is now located upper quadrants, right greater than the left. She denies any chest pain or shortness of breath. She thinks she may have had a subjective fever last night, but states she was afebrile in the emergency department. She denies any dysuria, frequency, or urgency. Last menstrual cycle was 3 weeks ago. She denies any abnormal vaginal discharge. Symptoms are moderate without any alleviating or exacerbating factors. PFSH Past Medical History Anxiety: Yes Depression: Yes Cancer: No Cardiovascular Problems: No Diabetes: No Diminished Hearing: No Headaches: No Musculoskeletal: No Psychiatric: Yes Reproductive: No Respiratory: No Immunizations Current: Yes Seizures: No ?: Not LMP: OCT 22 2017 : 1 Para: 1 Social History Alcohol Use: Yes (OCASSIONALLY) Tobacco Use: Yes (OCASSIONALLY) Substance Use: Yes (PSA PER POSITIVE DRUG SCREEN) Allergies-Medications (Allergen,Severity, Reaction): Coded Allergies: No Known Allergies (Unverified , 08/03/17) Reported Meds & Prescriptions Reported Meds & Active Scripts Active Vistaril (Hydroxyzine Pamoate) 25 Mg Cap 25 Mg PO HS PRN Reported Prozac (Fluoxetine HCl) 20 Mg Cap 40 Mg PO DAILY Review of Systems Except as stated in HPI: all other systems reviewed are Neg General / Constitutional: Positive: Fever (possible subjective fever last night ) HENT: No: Lightheadedness Cardiovascular: No: Chest Pain or Discomfort Respiratory: No: Shortness of Breath Gastrointestinal: Positive: Abdominal Pain, No: Nausea, Vomiting, Diarrhea Genitourinary: No: Dysuria, Discharge, Vaginal Bleeding Physical Exam Narrative GENERAL: Awake, alert, nontoxic-appearing 32-year-old female who appears her stated age and is in no acute respiratory distress. SKIN: Focused skin assessment warm/dry. HEAD: Atraumatic. Normocephalic. EYES: Pupils equal and round. No scleral icterus. No injection or drainage. ENT: No nasal bleeding or discharge. Mucous membranes pink and moist. NECK: Trachea midline. No JVD. CARDIOVASCULAR: Regular rate and rhythm. No murmur appreciated. RESPIRATORY: No accessory muscle use. Clear to auscultation. Breath sounds equal bilaterally. GASTROINTESTINAL: Abdomen soft, tender palpation right upper quadrant, minimal tenderness left upper quadrant. Negative McBurney's. No suprapubic tenderness. Back: No CVA tenderness. MUSCULOSKELETAL: No obvious deformities. No clubbing. No cyanosis. No edema. NEUROLOGICAL: Awake and alert. No obvious cranial nerve deficits. Motor grossly within normal limits. Normal speech. PSYCHIATRIC: Appropriate mood and affect; insight and judgment normal. Data Data Last Documented VS Vital Signs Date Time Temp Pulse Resp B/P (MAP) Pulse Ox O2 Delivery O2 Flow Rate FiO2 11/13/17 12:25 98.7 77 18 110/61 (77) 99 Room Air Orders Orders Complete Blood Count With Diff (11/13/17 12:42) Comprehensive Metabolic Panel (11/13/17 12:42) Lipase (11/13/17 12:42) Urinalysis - C+S If Indicated (11/13/17 12:42) Us Abdomen Gallbladder (11/13/17 ) Iv Access Insert/Monitor (11/13/17 12:42) Ecg Monitoring (11/13/17 12:42) Oximetry (11/13/17 12:42) Morphine Inj (Morphine Inj) (11/13/17 12:45) Ondansetron Inj (Zofran Inj) (11/13/17 12:45) Sodium Chlor 0.9% 1000 Ml Inj (Ns 1000 M (11/13/17 12:42) Sodium Chloride 0.9% Flush (Ns Flush) (11/13/17 12:45) Chest, Single Ap (11/13/17 12:42) Ketorolac Inj (Toradol Inj) (11/13/17 12:45) Ed Urine Pregnancytest Poc (11/13/17 12:42) Labs Laboratory Tests Test 11/13/17 12:45 11/13/17 12:55 Urine Color YELLOW Urine Turbidity HAZY Urine pH 6.0 Urine Specific [place] 1.019 Urine Protein 30 mg/dL Urine Glucose (UA) NEG mg/dL Urine Ketones NEG mg/dL Urine Occult Blood NEG Urine Nitrite NEG Urine Bilirubin NEG Urine Urobilinogen LESS THAN 2.0 MG/DL Urine Leukocyte Esterase NEG Urine RBC LESS THAN 1 /hpf Urine WBC 1 /hpf Urine Squamous Epithelial Cells 4 /hpf Urine Bacteria RARE /hpf Urine Mucus FEW /lpf Microscopic Urinalysis Comment CULT NOT INDICATED White Blood Count 3.1 TH/MM3 Red Blood Count 3.70 MIL/MM3 Hemoglobin 11.1 GM/DL Hematocrit 32.9 % Mean Corpuscular Volume 89.0 FL Mean Corpuscular Hemoglobin 29.9 PG Mean Corpuscular Hemoglobin Concent 33.6 % Red Cell Distribution Width 12.8 % Platelet Count 256 TH/MM3 Mean Platelet Volume 8.1 FL Neutrophils (%) (Auto) 65.8 % Lymphocytes (%) (Auto) 20.7 % Monocytes (%) (Auto) 12.8 % Eosinophils (%) (Auto) 0.4 % Basophils (%) (Auto) 0.3 % Neutrophils # (Auto) 2.0 TH/MM3 Lymphocytes # (Auto) 0.6 TH/MM3 Monocytes # (Auto) 0.4 TH/MM3 Eosinophils # (Auto) 0.0 TH/MM3 Basophils # (Auto) 0.0 TH/MM3 CBC Comment DIFF FINAL Differential Comment Blood Urea Nitrogen 7 MG/DL Creatinine 0.82 MG/DL Random Glucose 81 MG/DL Total Protein 7.5 GM/DL Albumin 3.3 GM/DL Calcium Level 8.5 MG/DL Alkaline Phosphatase 52 U/L Aspartate Amino Transf (AST/SGOT) 17 U/L Alanine Aminotransferase (ALT/SGPT) 22 U/L Total Bilirubin 0.2 MG/DL Sodium Level 139 MEQ/L Potassium Level 3.9 MEQ/L Chloride Level 106 MEQ/L Carbon Dioxide Level 27.8 MEQ/L Anion Gap 5 MEQ/L Estimat Glomerular Filtration Rate 81 ML/MIN Lipase 109 U/L MDM Medical Decision Making Medical Screen Exam Complete: Yes Emergency Medical Condition: Yes Medical Record Reviewed: Yes Interpretation(s) Last Impressions Chest X-Ray 11/13/17 1242 Signed Impressions: Service Date/Time: Monday, November 13, 2017 12:55 - CONCLUSION: No acute disease. Ashok Oliveira MD Gall Bladder Ultrasound 11/13/17 0000 Signed Impressions: Service Date/Time: Monday, November 13, 2017 13:20 - CONCLUSION: No acute disease. Ashok Oliveira MD Laboratory Tests Test 11/13/17 12:45 11/13/17 12:55 Urine Color YELLOW Urine Turbidity HAZY Urine pH 6.0 Urine Specific [place] 1.019 Urine Protein 30 mg/dL Urine Glucose (UA) NEG mg/dL Urine Ketones NEG mg/dL Urine Occult Blood NEG Urine Nitrite NEG Urine Bilirubin NEG Urine Urobilinogen LESS THAN 2.0 MG/DL Urine Leukocyte Esterase NEG Urine RBC LESS THAN 1 /hpf Urine WBC 1 /hpf Urine Squamous Epithelial Cells 4 /hpf Urine Bacteria RARE /hpf Urine Mucus FEW /lpf Microscopic Urinalysis Comment CULT NOT INDICATED White Blood Count 3.1 TH/MM3 Red Blood Count 3.70 MIL/MM3 Hemoglobin 11.1 GM/DL Hematocrit 32.9 % Mean Corpuscular Volume 89.0 FL Mean Corpuscular Hemoglobin 29.9 PG Mean Corpuscular Hemoglobin Concent 33.6 % Red Cell Distribution Width 12.8 % Platelet Count 256 TH/MM3 Mean Platelet Volume 8.1 FL Neutrophils (%) (Auto) 65.8 % Lymphocytes (%) (Auto) 20.7 % Monocytes (%) (Auto) 12.8 % Eosinophils (%) (Auto) 0.4 % Basophils (%) (Auto) 0.3 % Neutrophils # (Auto) 2.0 TH/MM3 Lymphocytes # (Auto) 0.6 TH/MM3 Monocytes # (Auto) 0.4 TH/MM3 Eosinophils # (Auto) 0.0 TH/MM3 Basophils # (Auto) 0.0 TH/MM3 CBC Comment DIFF FINAL Differential Comment Blood Urea Nitrogen 7 MG/DL Creatinine 0.82 MG/DL Random Glucose 81 MG/DL Total Protein 7.5 GM/DL Albumin 3.3 GM/DL Calcium Level 8.5 MG/DL Alkaline Phosphatase 52 U/L Aspartate Amino Transf (AST/SGOT) 17 U/L Alanine Aminotransferase (ALT/SGPT) 22 U/L Total Bilirubin 0.2 MG/DL Sodium Level 139 MEQ/L Potassium Level 3.9 MEQ/L Chloride Level 106 MEQ/L Carbon Dioxide Level 27.8 MEQ/L Anion Gap 5 MEQ/L Estimat Glomerular Filtration Rate 81 ML/MIN Lipase 109 U/L Differential Diagnosis Differential diagnosis includes cholecystitis, choledocholithiasis, cholelithiasis, pancreatitis, gastritis, lower lobe pneumonia, perforated viscus , atypical appendicitis, PID, pyelonephritis. Narrative Course IV was established, labs are drawn and sent, and the patient was placed on cardiac telemetry monitoring and continuous pulse oximetry monitoring. The patient was administer morphine, Toradol, Zofran, and IV fluids. Bedside UA test was obtained and UA was sent to lab. Bedside UA test was negative. UA is unremarkable. Chest x-ray reveals no acute disease, no evidence of free air. The patient's white count was slightly low at 3.1 with an increase in monocytes, may be underlying viral syndrome. Ultrasound is negative. The patient recently had a CT of her abdomen and pelvis which revealed a ruptured ovarian cyst. Abdominal exam is benign except for mild epigastric to right upper quadrant tenderness. I do not believe this is acute appendicitis. The patient was reevaluated at 2:20 PM, her pain had resolved. The patient was slightly upset that she did not have a definitive diagnosis, does have a history of anxiety. I did advise the patient I would write something for pain and she should follow up with her primary physician if symptoms persist that she may need a further workup palpation. Diagnosis Primary Impression: Abdominal pain Qualified Codes: R10.10 - Upper abdominal pain, unspecified Patient Instructions: General Instructions Additional Instructions: Tramadol as directed. Please provide the patient a copy of her ultrasound results, lab results, and x-ray results at discharge. Follow-up with a primary physician. Return for fever, intractable nausea/vomiting, or inability to tolerate oral intake. Med/Other Pt SpecificInfo: Prescription(s) given Scripts Tramadol (Tramadol) 50 Mg Tab 50 MG PO Q6H Y for PAIN, #15 TAB 0 Refills Prov: Caleb Abbott MD 11/13/17 Disposition: 01 DISCHARGE HOME Condition: Stable Caleb Abbott MD Nov 13, 2017 12:51
[2017-11-13 13:08] LABS: BASOPHIL % 0.3 % (0.0-2.0); EOSINOPHIL % 0.4 % (0.0-4.0); HEMATOCRIT 32.9 % (35.0-46.0); HEMOGLOBIN 11.1 GM/DL (11.6-15.3); LYMPH % 20.7 % (9.0-44.0); LYMPHOCYTE # 0.6 TH/MM3 (1.0-4.8); MEAN CORPUSCULAR HEMOGLOBIN 29.9 PG (27.0-34.0); MEAN CORPUSCULAR HGB CONC 33.6 % (32.0-36.0); MEAN PLATELET VOLUME 8.1 FL (7.0-11.0); MONO % 12.8 % (0.0-8.0); MONOCYTE # 0.4 TH/MM3 (0-0.9); NEUT % 65.8 % (16.0-70.0); PLATELET COUNT 256 TH/MM3 (150-450); RED CELL DISTRIBUTION WIDTH 12.8 % (11.6-17.2); WHITE BLOOD COUNT 3.1 TH/MM3 (4.0-11.0)
--- NOTE | 2017-11-13 13:08 | RADRPT ---
EXAM DATE/TIME: 11/13/2017 12:55 [facility] COMPARISON: No previous studies available for comparison. INDICATIONS : Lower chest pain for 5 days. Patient unable to take a deep breath in. No injury. MEDICAL HISTORY : None. SURGICAL HISTORY : None. ENCOUNTER: Initial ACUITY: 4 - 6 days PAIN SCORE: 6/10 LOCATION: Bilateral lower chest FINDINGS: A single view of the chest demonstrates the lungs to be symmetrically aerated without evidence of mas s, infiltrate or effusion. The cardiomediastinal contours are unremarkable. Osseous structures are intact. CONCLUSION: No acute disease. Ashok Oliveira MD on November 13, 2017 at 13:06 Board Certified Radiologist. This report was verified electronically.
[2017-11-13 13:10] LABS: BACTERIA, URINE RARE /hpf; BILIRUBIN, URINE NEG (NEG); BLOOD, URINE NEG (NEG); GLUCOSE,URINE NEG (NEG); KETONE, URINE NEG (NEG); MUCUS URINE FEW /lpf (OCC); NITRITE,URINE NEG (NEG); SQUAMOUS EPITHELIAL CELL URINE 4 /hpf (0-5); URINE COLOR YELLOW (YELLW/STRAW); URINE LEUKOCYTE ESTERASE NEG (NEG)
[2017-11-13 13:26] LABS: ALBUMIN 3.3 GM/DL (3.4-5.0); ALT (GPT) 22 U/L (10-53); AST (GOT) 17 U/L (15-37); BICARBONATE 27.8 MEQ/L (21.0-32.0); BLOOD UREA NITROGEN 7 MG/DL (7-18); CALCIUM 8.5 MG/DL (8.5-10.1); CHLORIDE 106 MEQ/L (98-107); CREATININE 0.82 MG/DL (0.50-1.00); GLOMERULAR FILTRATION RATE 81 ML/MIN (>89); GLUCOSE,RANDOM 81 MG/DL (74-106); LIPASE 109 U/L (73-393); SODIUM (NA) 139 MEQ/L (136-145)
[2017-11-13 13:27] LABS: ALKALINE PHOSPHATASE 52 U/L (45-117); TOTAL BILIRUBIN ADULT 0.2 MG/DL (0.2-1.0); TOTAL PROTEIN 7.5 GM/DL (6.4-8.2)
--- NOTE | 2017-11-13 13:49 | RADRPT ---
EXAM DATE/TIME: 11/13/2017 13:20 [facility] COMPARISON: No previous studies available for comparison. INDICATIONS : Right upper quadrant pain. MEDICAL HISTORY : . Substance abuse. Depression. Anxiety. SURGICAL HISTORY : None. ENCOUNTER: Initial ACUITY: 1 day PAIN SCORE: 4/10 LOCATION: Right upper quadrant MEASUREMENTS: LIVER: 17.4 cm length COMMON DUCT: 4 mm RIGHT KIDNEY: 10.2 x 5.4 x 4.8 cm FINDINGS: LIVER: Normal echotexture without focal lesion or ductal dilatation. COMMON DUCT: No intraluminal mass or stone visualized. GALLBLADDER: Contains no stones, demonstrates no wall thickening or pericholecystic fluid. PANCREAS: The visualized portions are within normal limits. RIGHT KIDNEY: No evidence of hydronephrosis, stone, or mass. CONCLUSION: No acute disease. Ashok Oliveira MD on November 13, 2017 at 13:44 Board Certified Radiologist. This report was verified electronically.
[2017-11-13] MEDS ORDERED: TRAM50TA PO (14:29)
[2017-11-13 15:19] VITALS: BP 120/75
== END 2017-11-13 15:21 | disposition home or self-care (01) ==
LOC: NEPC 12:23
DX: R10.31 Right lower quadrant pain (principal); F41.9 Anxiety disorder, unspecified; F32.9 Major depressive disorder, single episode, unspecified; Z79.899 Other long term (current) drug therapy; Z72.0 Tobacco use
CPT/HCPCS: 71045; 76705; 80053; 81001; 83690; 84703; 85025; 96361; 96374; 99285; J1885; J7030

== ENCOUNTER 2018-01-25 12:41 | Emergency (ER) | payer OTHER ==
[~2018-01-25] VITALS: Ht 160 cm; Wt 56.0 kg
[~2018-01-25 12:41] MED LIST changes: +TRAM50TA PO
[2018-01-25 12:49] VITALS: BP 121/63; PULSE 87; RESP 16; TEMP 99.1; O2SAT 100
[2018-01-25] MEDS ORDERED: prenatal (13:56)
--- NOTE | 2018-01-25 15:25 | PD ---
HPI Chief Complaint: Related Problem Time Seen by Provider: 14:38 Travel History International Travel<30 days: No Contact w/Intl Traveler<30days: No Traveled to known affect area: No History of Present Illness HPI 32-year-old approximately 8 week female presents to the emergency room for evaluation of pelvic cramping for the past couple weeks. Patient states she found out she was 3 weeks ago after having a missed period in December. She reports remembering with some amount of cramping is normal but occasionally she will get such sharp pains that she is afraid something is wrong. She has had increased vaginal discharge but denies any vaginal bleeding. She went to the health department 4 weeks ago and was checked for STDs and not found to have any infection. Patient has not had any new sexual partners since that time. She has not been able to see her LABOR/EXCAVATOR yet because of insurance reasons. She denies any chronic medical conditions or daily medications. States she weaned herself off Prozac about 3 weeks ago. She smokes 1-2 cigarettes per day. She is taking vitamins. PFSH Past Medical History Anxiety: Yes Depression: Yes Cancer: No Cardiovascular Problems: No Diabetes: No Diminished Hearing: No Headaches: No Musculoskeletal: No Psychiatric: Yes Reproductive: No Respiratory: No Immunizations Current: Yes Seizures: No ?: LMP: nov 27 : 1 Para: 1 Social History Alcohol Use: No (OCASSIONALLY) Tobacco Use: Yes (11/14 PPD) Substance Use: No (PSA PER POSITIVE DRUG SCREEN, PT DENIES 11/13/17) Allergies-Medications (Allergen,Severity, Reaction): Coded Allergies: No Known Allergies (Unverified Adverse Reaction, Unknown, 01/25/18) Reported Meds & Prescriptions Reported Meds & Active Scripts Active Reported [ ] DAILY Review of Systems Except as stated in HPI: all other systems reviewed are Neg Physical Exam Narrative GENERAL: Well-nourished, well-developed female no acute distress. Afebrile. Ambulatory. SKIN: Focused skin assessment warm/dry. HEAD: Normocephalic. EYES: No scleral icterus. No injection or drainage. NECK: Supple, trachea midline. No JVD or lymphadenopathy. CARDIOVASCULAR: Regular rate and rhythm without murmurs, gallops, or rubs. RESPIRATORY: Breath sounds equal bilaterally. No accessory muscle use. GASTROINTESTINAL: Abdomen soft, nondistended. No significant tenderness to palpation over the pelvis. GENITOURINARY: Examined in the presence of a nurse. Sterile gloves were used. Normal external genitalia without lesions or erythema. Vaginal vault without blood but there is mild green drainage. Cervical os was closed with the same drainage. No cervical motion tenderness. Uterus nontender and nonenlarged. Bilateral adnexa nontender without masses. Data Data Last Documented VS Vital Signs Date Time Temp Pulse Resp B/P (MAP) Pulse Ox O2 Delivery O2 Flow Rate FiO2 01/25/18 15:39 71 18 104/55 (71) 99 Room Air 01/25/18 12:49 99.1 Orders Orders Beta Hcg (Quant/Titer) (01/25/18 15:01) Complete Blood Count With Diff (01/25/18 15:01) Comprehensive Metabolic Panel (01/25/18 15:01) Gc And Chlamydia Pcr (01/25/18 15:01) Us Pelvis (Ques Preg/Ectopic) (01/25/18 ) Wet Prep Profile (01/25/18 15:01) Urinalysis - C+S If Indicated (01/25/18 15:01) Ed Discharge Order (01/25/18 18:06) Labs Laboratory Tests Test 01/25/18 15:15 01/25/18 15:30 White Blood Count 6.2 TH/MM3 Red Blood Count 3.71 MIL/MM3 Hemoglobin 10.7 GM/DL Hematocrit 32.1 % Mean Corpuscular Volume 86.7 FL Mean Corpuscular Hemoglobin 29.0 PG Mean Corpuscular Hemoglobin Concent 33.4 % Red Cell Distribution Width 12.6 % Platelet Count 302 TH/MM3 Mean Platelet Volume 7.9 FL Neutrophils (%) (Auto) 72.6 % Lymphocytes (%) (Auto) 18.2 % Monocytes (%) (Auto) 7.3 % Eosinophils (%) (Auto) 1.7 % Basophils (%) (Auto) 0.2 % Neutrophils # (Auto) 4.5 TH/MM3 Lymphocytes # (Auto) 1.1 TH/MM3 Monocytes # (Auto) 0.5 TH/MM3 Eosinophils # (Auto) 0.1 TH/MM3 Basophils # (Auto) 0.0 TH/MM3 CBC Comment DIFF FINAL Differential Comment Blood Urea Nitrogen 10 MG/DL Creatinine 0.60 MG/DL Random Glucose 84 MG/DL Total Protein 6.3 GM/DL Albumin 3.1 GM/DL Calcium Level 8.0 MG/DL Alkaline Phosphatase 51 U/L Aspartate Amino Transf (AST/SGOT) 19 U/L Alanine Aminotransferase (ALT/SGPT) 38 U/L Total Bilirubin 0.2 MG/DL Sodium Level 140 MEQ/L Potassium Level 4.3 MEQ/L Chloride Level 105 MEQ/L Carbon Dioxide Level 26.0 MEQ/L Anion Gap 9 MEQ/L Estimat Glomerular Filtration Rate 116 ML/MIN Human Chorionic Gonadotropin, Quant [id number] MIU/ML Urine Color YELLOW Urine Turbidity HAZY Urine pH 5.5 Urine Specific [place] 1.030 Urine Protein TRACE mg/dL Urine Glucose (UA) NEG mg/dL Urine Ketones NEG mg/dL Urine Occult Blood NEG Urine Nitrite NEG Urine Bilirubin NEG Urine Urobilinogen LESS THAN 2.0 MG/DL Urine Leukocyte Esterase NEG Urine RBC 1 /hpf Urine WBC 1 /hpf Urine Squamous Epithelial Cells 41 /hpf Urine Calcium Oxalate Crystals OCC /hpf Urine Bacteria OCC /hpf Urine Mucus FEW /lpf Microscopic Urinalysis Comment CULT NOT INDICATED Clue Cells (Wet Prep) NONE SEEN Vaginal Trichomonas (Wet Prep) NONE SEEN Vaginal Yeast (Wet Prep) NONE SEEN MDM Medical Decision Making Medical Screen Exam Complete: Yes Emergency Medical Condition: Yes Medical Record Reviewed: Yes Differential Diagnosis Normal , STD, ectopic , bacterial vaginosis Narrative Course 32-year-old female presents to the emergency room for evaluation of pelvic cramping and increased vaginal discharge for the past several weeks. No vaginal bleeding. Patient states she is about 8 weeks and never had pain like this with her first . CBC shows mild anemia. CMP is unremarkable. UA is unremarkable, likely very contaminated. Wet prep unremarkable. Patient was just checked for STDs 1 month ago and has had no new partner since then. I have low suspicion for STD so she will not be treated empirically at this time. Ultrasound shows intrauterine with heart rate of 137 bpm and crown rump length of 7 weeks. Patient was reassured and told to follow-up with her primary care physician and inverted block operator or return for worsening symptoms. She understands and agrees to plan. Diagnosis Primary Impression: Intrauterine Additional Impression: Anemia Qualified Codes: D64.9 - Anemia, unspecified Referrals: Primary Care Physician Additional Instructions: Follow-up with your speech pathologist assistant. Continue taking vitamins. Take Tylenol as directed, as needed for pain. Return for worsening symptoms. Disposition: 01 DISCHARGE HOME Condition: Stable Soila Flores Jan 25, 2018 15:25
[2018-01-25 15:39] VITALS: BP 104/55; PULSE 71; RESP 18; O2SAT 99
[2018-01-25 16:11] LABS: BACTERIA, URINE OCC /hpf; BILIRUBIN, URINE NEG (NEG); BLOOD, URINE NEG (NEG); CALCIUM OXALATE CRYSTALS,URINE OCC /hpf; GLUCOSE,URINE NEG (NEG); KETONE, URINE NEG (NEG); MUCUS URINE FEW /lpf (OCC); NITRITE,URINE NEG (NEG); PH, URINE 5.5 (5.0-8.5); SQUAMOUS EPITHELIAL CELL URINE 41 /hpf (0-5); URINE COLOR YELLOW (YELLW/STRAW); URINE LEUKOCYTE ESTERASE NEG (NEG)
[2018-01-25 16:11] LABS: AUTOMATED NEUTROPHIL # 4.5 TH/MM3 (1.8-7.7); BASOPHIL % 0.2 % (0.0-2.0); EOSINOPHIL # 0.1 TH/MM3 (0-0.4); EOSINOPHIL % 1.7 % (0.0-4.0); HEMATOCRIT 32.1 % (35.0-46.0); HEMOGLOBIN 10.7 GM/DL (11.6-15.3); LYMPH % 18.2 % (9.0-44.0); LYMPHOCYTE # 1.1 TH/MM3 (1.0-4.8); MEAN CELL VOLUME 86.7 FL (80.0-100.0); MEAN CORPUSCULAR HGB CONC 33.4 % (32.0-36.0); MEAN PLATELET VOLUME 7.9 FL (7.0-11.0); MONO % 7.3 % (0.0-8.0); MONOCYTE # 0.5 TH/MM3 (0-0.9); NEUT % 72.6 % (16.0-70.0); PLATELET COUNT 302 TH/MM3 (150-450); RED BLOOD COUNT 3.71 MIL/MM3 (4.00-5.30); RED CELL DISTRIBUTION WIDTH 12.6 % (11.6-17.2); WHITE BLOOD COUNT 6.2 TH/MM3 (4.0-11.0)
[2018-01-25 16:31] LABS: ALBUMIN 3.1 GM/DL (3.4-5.0); AST (GOT) 19 U/L (15-37); BLOOD UREA NITROGEN 10 MG/DL (7-18); CHLORIDE 105 MEQ/L (98-107); GLOMERULAR FILTRATION RATE 116 ML/MIN (>89); GLUCOSE,RANDOM 84 MG/DL (74-106); SODIUM (NA) 140 MEQ/L (136-145)
[2018-01-25 16:51] LABS: ALKALINE PHOSPHATASE 51 U/L (45-117); ALT (GPT) 38 U/L (10-53); TOTAL BILIRUBIN ADULT 0.2 MG/DL (0.2-1.0); TOTAL PROTEIN 6.3 GM/DL (6.4-8.2)
--- NOTE | 2018-01-25 17:57 | RADRPT ---
EXAM DATE/TIME: 01/25/2018 17:04 [place] COMPARISON: No previous studies available for comparison. INDICATIONS : Cramping with . LAB(S): [facility],897 MEDICAL HISTORY : . SURGICAL HISTORY : None. ENCOUNTER: Initial ACUITY: 1 day PAIN SCORE: 3/10 LOCATION: Bilateral pelvis MEASUREMENTS: UTERUS: 11.0 x 6.2 x 7.3 cm ENDOMETRIAL STRIPE: >20 mm RIGHT OVARY: 2.8 x 1.7 x 1.9 cm LEFT OVARY: 2.8 x 1.8 x 2.0 cm FREE FLUID: No CROWN RUMP LENGTH: 0.93 cm = 7 WKS 0 DAYS FHR: 134 BPM FINDINGS: There is a single viable intrauterine of 7 weeks zero days by crown-rump length and 7 weeks 6 days by gestational sac size. Positive yolk sac present. heart rate 134 beats per minute. Ov sai unremarkable. No free fluid. CONCLUSION: 1. Single viable intrauterine as above. Armin Laird MD on January 25, 2018 at 17:54 Board Certified Radiologist. This report was verified electronically.
== END 2018-01-25 18:23 | disposition home or self-care (01) ==
LOC: NEPD 12:41
DX: O99.011 Anemia complicating pregnancy, first trimester (principal); N89.8 Other specified noninflammatory disorders of vagina; R10.2 Pelvic and perineal pain; O99.341 Other mental disorders complicating pregnancy, first trimester; F41.9 Anxiety disorder, unspecified; F32.9 Major depressive disorder, single episode, unspecified; O99.331 Smoking (tobacco) complicating pregnancy, first trimester; F17.210 Nicotine dependence, cigarettes, uncomplicated; Z3A.08 8 weeks gestation of pregnancy
CPT/HCPCS: 76700; 80053; 81001; 84702; 85025; 87210; 87491; 87591; 99284

== ENCOUNTER 2018-04-08 02:33 | Emergency (ER) | payer MEDICAID, OTHER ==
[~2018-04-08] VITALS: Ht 160 cm; Wt 55.0 kg
[~2018-04-08 02:33] MED LIST changes: -PROZ20CA11 PO; -TRAM50TA PO; -VIST25CA PO; +prenatal
[2018-04-08 02:42] VITALS: BP 114/59; PULSE 83; RESP 16; TEMP 98.5; O2SAT 98
[2018-04-08] MEDS ORDERED: traMADol HCL 50 MG TAB PO ONE (03:00)
[2018-04-08] MEDS ORDERED: AMOXICILLIN 875 MG TAB PO ONE (03:00)
[2018-04-08] MEDS ORDERED: IBUP1TAB7 PO (03:01)
[2018-04-08] MEDS ORDERED: AMOX875T PO (03:01)
--- NOTE | 2018-04-08 03:01 | PD ---
HPI Chief Complaint: ENT Complaint Time Seen by Provider: 02:49 Travel History International Travel<30 days: No Contact w/Intl Traveler<30days: No Traveled to known affect area: No History of Present Illness HPI Patient is a 32-year-old female presenting to the emergency department for evaluation of left ear pain. Patient states it started almost 3 days ago. He is gotten progressively worse, patient reports the pain is 10 out of 10, she states is throbbing. She has taken ibuprofen as well as Lortab that she had left over from a D&C with no improvement of her symptoms. Patient states it started draining yesterday. She denies any fever, chills, nausea, vomiting, headache. Symptom onset was gradual, symptoms are moderate in nature. PFSH Past Medical History Anxiety: Yes Depression: Yes Headaches: No Musculoskeletal: No Psychiatric: Yes Reproductive: No Respiratory: No Immunizations Current: Yes Seizures: No ?: Unknown LMP: 03/04 : 1 Para: 1 Social History Alcohol Use: No (OCASSIONALLY) Tobacco Use: Yes (11/14 PPD) Substance Use: No (PSA PER POSITIVE DRUG SCREEN, PT DENIES 11/13/17) Allergies-Medications (Allergen,Severity, Reaction): Coded Allergies: No Known Allergies (Unverified Adverse Reaction, Unknown, 01/25/18) Reported Meds & Prescriptions Reported Meds & Active Scripts Active Reported [ ] DAILY Review of Systems Except as stated in HPI: all other systems reviewed are Neg HENT: Positive: Ear Discharge, Earache Physical Exam Narrative GENERAL: Well-developed, well-nourished, alert comfortable appearing female. Presenting in no acute distress. SKIN: Warm and dry. HEAD: Atraumatic. Normocephalic. EYES: Pupils equal and round. No scleral icterus. No injection or drainage. ENT: No nasal bleeding or discharge. Mucous membranes pink and moist. EARS: Bilateral pinnae and external canals appear within normal limits. Right tympanic membranes without erythema, dullness or perforation. Left tympanic membrane is erythematous and bulging. No perforation noted. Serous drainage noted in external canal. NECK: Trachea midline. No JVD. CARDIOVASCULAR: Regular rate and rhythm. RESPIRATORY: No accessory muscle use. Clear to auscultation. Breath sounds equal bilaterally. GASTROINTESTINAL: Abdomen soft, non-tender, nondistended. Hepatic and splenic margins not palpable. MUSCULOSKELETAL: Extremities without clubbing, cyanosis, or edema. No obvious deformities. NEUROLOGICAL: Awake and alert. No obvious cranial nerve deficits. Motor grossly within normal limits. Five out of 5 muscle strength in the arms and legs. Normal speech. PSYCHIATRIC: Appropriate mood and affect; insight and judgment normal. Data Data Last Documented VS Vital Signs Date Time Temp Pulse Resp B/P (MAP) Pulse Ox O2 Delivery O2 Flow Rate FiO2 04/08/18 02:42 98.5 83 16 114/59 (77) 98 Orders Orders Amoxicillin (Trimox) (04/08/18 03:00) Tramadol (Ultram) (04/08/18 03:00) [facility] Medical Decision Making Medical Screen Exam Complete: Yes Emergency Medical Condition: Yes Interpretation(s) Vital Signs Date Time Temp Pulse Resp B/P (MAP) Pulse Ox O2 Delivery O2 Flow Rate FiO2 04/08/18 02:42 98.5 83 16 114/59 (77) 98 Differential Diagnosis Otitis media versus otitis externa versus effusion versus ruptured membrane versus other Narrative Course Patient is a 32-year-old female presented to the emergency department for evaluation of left earache. Exam is consistent with otitis media. Patient be given dose of amoxicillin now, she appears uncomfortable we given a dose of tramadol as well. She was encouraged to follow-up with her primary doctor or return to emergency department new or worsening symptoms. She was advised to complete full course of antibiotics as prescribed. Patient verbalized understanding of instructions. Patient stable for discharge. Patient will be driven home by her . Diagnosis Primary Impression: Otitis media Qualified Codes: H65.02 - Acute serous otitis media, left ear Referrals: [facility] Primary Care Physician Patient Instructions: General Instructions, Serous Otitis Media (ED) Additional Instructions: Follow-up with your primary doctor or at the [facility] Complete full course of antibiotics as prescribed Return to emergency department for any new worsening symptoms You may apply warm compress to the affected ear Med/Other Pt SpecificInfo: Prescription(s) given Scripts Ibuprofen (Ibuprofen) 800 Mg Tab 800 MG PO Q6HR Y for PAIN, #40 TAB 0 Refills Prov: Sarina Parker 04/08/18 Amoxicillin (Amoxicillin) 875 Mg Tab 875 MG PO BID for Infection for 10 Days, #20 TAB 0 Refills Prov: Sarina Parker 04/08/18 Disposition: 01 DISCHARGE HOME Condition: Stable Sarina Parker April 08, 2018 03:01
== END 2018-04-08 03:15 | disposition home or self-care (01) ==
LOC: NEPD 02:33
DX: H65.02 Acute serous otitis media, left ear (principal); F17.200 Nicotine dependence, unspecified, uncomplicated
CPT/HCPCS: 99283

== ENCOUNTER 2018-09-26 00:47 | Observation (INO) ==
[2018-09-26] MEDS ORDERED: Sod Chloride 0.9% Inj 1,000 ML IV.SIG ONE (01:06)
[2018-09-26] MEDS ORDERED: Naloxone Inj 2 MG/2 ML Vial IV.PUSH ONE (01:06)
[2018-09-26 01:45] LABS: ABG PCO2 56 mmHg (38-42); ABG PO2 98 mmHg (61-120)
[2018-09-26 02:26] LABS: Bilirubin,Urine Negative (Negative); Clarity,Urine Slightly Cloudy (Clear); Color,Urine Yellow (Yellw/Straw); Glucose,Urine (UA) Negative (Negative); Leukocyte Esterase,Urine Negative (Negative); Nitrite,Urine Negative (Negative); PH,Urine 5.5 (5.0-8.5); Specific Gravity,Urine Greater/Equal 1.030 (1.002-1.035); Urobilinogen,Urine 0.2 mg/dL (Less than 2)
--- NOTE | 2018-09-26 02:27 | XR ---
EXAM DATE: 09/26/2018 2:03 AM EST AGE/SEX: 33 years / Female INDICATIONS: Shortness of breath status post CPR. Possible overdose. CLINICAL DATA: This is the patient's initial encounter. Patient reports that signs and symptoms have been present for 1 day and indicates a pain score of 0/10. MEDICAL/SURGICAL HISTORY: None. None. COMPARISON: 11/13/2017, [facility]. FINDINGS: A single AP view of the chest demonstrates the lungs to be symmetrically aerated without evidence of mass, infiltrate or effusion. The cardiomediastinal contours are unremarkable. Osseous structures a re intact. CONCLUSION: No acute cardiopulmonary disease. Electronically signed by: Canelo Paniagua MD 09/26/2018 2:26 AM EST
[2018-09-26 02:28] LABS: Baso % (Auto) 0.3 % (0.0-2.0); Eos # (Auto) 0.4 th/mm3 (0.0-0.4); Eos % (Auto) 7.5 % (0.0-4.0); Hemoglobin 9.2 gm/dL (11.6-15.3); Lymph # (Auto) 0.9 th/mm3 (1.0-4.8); Lymph % (Auto) 15.5 % (9.0-44.0); Mean Corpuscular HGB Conc 31.7 % (32.0-36.0); Mean Corpuscular Volume 81.8 fL (80.0-100.0); Mean Platelet Volume 6.8 fL (7.0-11.0); Mono # (Auto) 0.5 th/mm3 (0.0-0.9); Mono % (Auto) 9.7 % (0.0-8.0); Neut # (Auto) 3.8 th/mm3 (1.8-7.7); Platelet Count 368 th/mm3 (150-450); Red Blood Count 3.55 mil/mm3 (4.00-5.30); Red Cell Distribution Width 19.4 % (11.6-17.2); White Blood Count 5.6 th/mm3 (4.0-11.0)
[2018-09-26 02:31] LABS: Bacteria,Urine Few /hpf; RBC,Urine 0-3 /hpf (0-3)
[2018-09-26 02:33] LABS: Chloride 104 meq/L (98-107); Potassium 4.1 meq/L (3.5-5.1); Sodium 138 meq/L (136-145)
[2018-09-26 02:35] LABS: Amphetamine Screen,Urine Neg (Neg); Barbiturate Screen,Urine Neg (Neg)
[2018-09-26 02:36] LABS: Cannabinoid Screen,Urine Neg (Neg); Cocaine Screen,Urine Pos (Neg)
[2018-09-26 02:36] LABS: Calcium 7.6 mg/dL (8.5-10.1); Prothrombin Time 10.2 sec (9.8-11.6)
[2018-09-26 02:37] LABS: Albumin 3.2 g/dL (3.4-5.0); Anion Gap 5 meq/L (5-15); Blood Urea Nitrogen 15 mg/dL (7-18); Carbon Dioxide 29.5 meq/L (21.0-32.0); Glucose,Random 89 mg/dL (74-106); Lipase 88 U/L (73-393)
[2018-09-26 02:39] LABS: Alanine Aminotransferase 27 U/L (10-53); Aspartate Aminotransferase 18 U/L (15-37)
[2018-09-26 02:40] LABS: Glomerular Filtration Rate 85 mL/min (>89)
[2018-09-26 02:41] LABS: Total Protein 6.5 g/dL (6.4-8.2)
[2018-09-26 02:42] LABS: Alkaline Phosphatase 124 U/L (45-117)
[2018-09-26 02:51] LABS: Opiate Screen,Urine Pos (Neg)
[2018-09-26] MEDS ORDERED: Sod Chloride 0.9% Inj 1,000 ML IV.SIG SCH (03:15)
--- NOTE | 2018-09-26 03:42 | ED ---
HPI General Chief Complaint: Overdose Stated Complaint: EVAC/Overdose Time Seen by Provider: 09/26/18 01:06 Source: patient and EMS History of Present Illness HPI Narrative: 33-year-old female with a past medical history of IV drug use presents to the emergency room after she was found unresponsive. Patient received CPR by bystanders. Upon arrival of EMS patient was found to be in respiratory arrest. Patient responded well to IV Narcan. Patient regained pulse and respiration. Patient states she has been on recovery house for the last week without the use of IV heroin until today. Patient denies chest pain, shortness of breath, fever, chills, abdominal pain, cough, diarrhea or constipation. Patient has a GCS of 15 there is no obvious injuries as a result of the CPR.She required another dose of Narcan to maintain her at the status of GCS 15. Related Data Home Medications Medication Instructions Recorded Confirmed fluoxetine [Prozac] 20 mg PO DAILY 09/09/18 09/26/18 gabapentin 600 mg PO TID 09/26/18 09/26/18 Allergies Allergy/AdvReac Type Severity Reaction Status Date / Time No Known Allergies Allergy Verified 09/26/18 01:07 Review of Systems Constitutional Denies fever(s) Eyes Denies change in vision ENT Denies headache(s) and Denies nasal congestion Cardiovascular Denies chest pain Respiratory Denies dyspnea Gastrointestinal Denies abdominal pain Genitourinary Denies difficulty voiding Musculoskeletal Denies myalgias Integumentary/Breasts Denies rash Neurologic Denies headache(s) Psychiatric Denies depression Endocrine Denies polyuria Hematologic/Lymphatic Denies easy bruising [facility] Medical History Medical History Anxiety (Acute) Depression (Acute) Substance abuse (Acute) Social History Social History Substance History: Active Abuse Second Hand Smoke Exposure: Yes Smoking Status: Current every day smoker Tobacco Type: Cigarettes How Often Do You Have a Drink Containing Alcohol: Monthly or less Recent Travel [facility] within the Last 8 Weeks: No Recent Out of Country Travel within the Last 8 Weeks: No Substance Abuse Detail Heroin: Substance Use Status: Active Route Used Substance Abuse: Intravenously Reason for Use: Get High Immunization History Tetanus Immunization: <5 Years Exam Narrative Exam Narrative: GENERAL: Patient is alert and oriented -3 SKIN: Focused skin assessment warm/dry.Multiple track denny on both arms for previous use of IV drug use. HEAD: Atraumatic. Normocephalic. EYES: Pupils equal and round. No scleral icterus. No injection or drainage. ENT: No nasal bleeding or discharge. Mucous membranes pink and moist. NECK: Trachea midline. No JVD. CARDIOVASCULAR: Regular rate and rhythm. No murmur appreciated. RESPIRATORY: No accessory muscle use. Clear to auscultation. Breath sounds equal bilaterally. GASTROINTESTINAL: Abdomen soft, non-tender, nondistended. Hepatic and splenic margins not palpable. MUSCULOSKELETAL: No obvious deformities. No clubbing. No cyanosis. No edema. NEUROLOGICAL: Awake and alert. No obvious cranial nerve deficits. Motor grossly within normal limits. Normal speech. PSYCHIATRIC: Appropriate mood and affect; insight and judgment normal. Course Reevaluation(s) Reevaluation #1: Patient remains calm and easily arousable with verbal stimuli. No signs of distress, seizures, nausea or vomiting. Time: 04:42 Initial Documented Vital Signs Temperature 98.1 F 09/26/18 00:56 Pulse Rate 92 H 09/26/18 00:56 Respiratory Rate 18 09/26/18 00:56 Blood Pressure 116/77 09/26/18 00:56 Pulse Oximetry 97 09/26/18 00:56 Last Documented Vital Signs Temperature 98.1 F 09/26/18 00:56 Pulse Rate 75 09/26/18 03:03 Respiratory Rate 16 09/26/18 03:03 Blood Pressure 97/62 L 09/26/18 03:03 Pulse Oximetry 98 09/26/18 03:03 Medical Decision Making [facility] Narrative Medical Screen Exam Complete: Yes Emergency Medical Condition: Yes Lab Data Result diagrams: 09/26/18 01:55 09/26/18 01:55 POC Results POC Urine Results Negative Lab Results 09/26/18 09/26/18 09/26/18 Range/Units 01:32 01:55 01:55 CBC w Diff Auto diff final WBC 5.6 (4.0-11.0) th/mm3 RBC 3.55 L (4.00-5.30) mil/mm3 Hgb 9.2 L (11.6-15.3) gm/dL Hct 29.0 L (35.0-46.0) % MCV 81.8 (80.0-100.0) fL MCH 26.0 L (27.0-34.0) pg MCHC 31.7 L (32.0-36.0) % RDW 19.4 H (11.6-17.2) % Plt Count 368 (150-450) th/mm3 MPV 6.8 L (7.0-11.0) fL Neut % (Auto) 67.0 (16.0-70.0) % Lymph % (Auto) 15.5 (9.0-44.0) % Henry % (Auto) 9.7 H (0.0-8.0) % Eos % (Auto) 7.5 H (0.0-4.0) % Baso % (Auto) 0.3 (0.0-2.0) % Neut # (Auto) 3.8 (1.8-7.7) th/mm3 Lymph # (Auto) 0.9 L (1.0-4.8) th/mm3 Henry # (Auto) 0.5 (0.0-0.9) th/mm3 Eos # (Auto) 0.4 (0.0-0.4) th/mm3 Baso # (Auto) 0.0 (0.0-0.2) th/mm3 WBC Differential . Differential Comment . PT 10.2 (9.8-11.6) sec INR 1.0 Ratio Puncture Site Right brachial Patient Temperature 98.6 O2 Saturation 95 (90-100) % ABG pH 7.32 L (7.380-7.420) ABG pCO2 56 H* (38-42) mmHg ABG pO2 98 (61-120) mmHg ABG HCO3 29 H (22-26) mmol/L ABG O2 Content 12.0 (12.0-20.0) Vol % ABG Base Excess 3.0 H (-2-2) mmol/L ABG Methemoglobin 1.1 (0-2) % Hemoglobin 8.9 L (12.0-16.0) G/DL Carboxyhemoglobin 2.8 (0-4) % O2 Delivery Device Room air Inspired O2 21 % Critical Value Yes Sodium (136-145) meq/L Potassium (3.5-5.1) meq/L Chloride (98-107) meq/L Carbon Dioxide (21.0-32.0) meq/L Anion Gap (5-15) meq/L BUN (7-18) mg/dL Creatinine (0.50-1.00) mg/dL Estimated GFR (>89) mL/min Random Glucose (74-106) mg/dL Calcium (8.5-10.1) mg/dL Magnesium (1.5-2.5) mg/dL Total Bilirubin (0.2-1.0) mg/dL AST (15-37) U/L ALT (10-53) U/L Alkaline Phosphatase (45-117) U/L Troponin I (0.02-0.05) ng/mL Total Protein (6.4-8.2) g/dL Albumin (3.4-5.0) g/dL Lipase (73-393) U/L Urine Color (Yellw/Straw) Urine Clarity (Clear) Urine pH (5.0-8.5) Ur Specific [employer] (1.002-1.035) Urine Protein (Neg-Trace) mg/dL Urine Glucose (UA) (Negative) mg/dL Urine Ketones (Negative) mg/dL Urine Occult Blood (Negative) Urine Nitrate (Negative) Urine Bilirubin (Negative) Urine Urobilinogen (Less than 2) mg/dL Ur Leukocyte Esterase (Negative) Urine RBC (0-3) /hpf Urine WBC (0-5) /hpf Ur Squamous Epith Cells (0-5) /hpf Urine Bacteria (None) /hpf Micro UA Comment Ur Microscopic Review Urine Culture Comments Salicylates (2.8-20.0) mg/dL Urine Opiates Screen (Neg) Acetaminophen (10.0-30.0) mcg/mL Ur Barbiturates Screen (Neg) Ur Amphetamines Screen (Neg) U Benzodiazepines Scrn (Neg) Urine Cocaine Screen (Neg) U Cannabinoids Screen (Neg) Serum Alcohol (0-5) mg/dL 09/26/18 09/26/18 09/26/18 Range/Units 01:55 01:55 01:57 CBC w Diff WBC (4.0-11.0) th/mm3 RBC (4.00-5.30) mil/mm3 Hgb (11.6-15.3) gm/dL Hct (35.0-46.0) % MCV (80.0-100.0) fL MCH (27.0-34.0) pg MCHC (32.0-36.0) % RDW (11.6-17.2) % Plt Count (150-450) th/mm3 MPV (7.0-11.0) fL Neut % (Auto) (16.0-70.0) % Lymph % (Auto) (9.0-44.0) % Henry % (Auto) (0.0-8.0) % Eos % (Auto) (0.0-4.0) % Baso % (Auto) (0.0-2.0) % Neut # (Auto) (1.8-7.7) th/mm3 Lymph # (Auto) (1.0-4.8) th/mm3 Henry # (Auto) (0.0-0.9) th/mm3 Eos # (Auto) (0.0-0.4) th/mm3 Baso # (Auto) (0.0-0.2) th/mm3 WBC Differential Differential Comment PT (9.8-11.6) sec INR Ratio Puncture Site Patient Temperature O2 Saturation (90-100) % ABG pH (7.380-7.420) ABG pCO2 (38-42) mmHg ABG pO2 (61-120) mmHg ABG HCO3 (22-26) mmol/L ABG O2 Content (12.0-20.0) Vol % ABG Base Excess (-2-2) mmol/L ABG Methemoglobin (0-2) % Hemoglobin (12.0-16.0) G/DL Carboxyhemoglobin (0-4) % O2 Delivery Device Inspired O2 % Critical Value Sodium 138 (136-145) meq/L Potassium 4.1 (3.5-5.1) meq/L Chloride 104 (98-107) meq/L Carbon Dioxide 29.5 (21.0-32.0) meq/L Anion Gap 5 (5-15) meq/L BUN 15 (7-18) mg/dL Creatinine 0.78 (0.50-1.00) mg/dL Estimated GFR 85 L (>89) mL/min Random Glucose 89 (74-106) mg/dL Calcium 7.6 L (8.5-10.1) mg/dL Magnesium 2.0 (1.5-2.5) mg/dL Total Bilirubin 0.3 (0.2-1.0) mg/dL AST 18 (15-37) U/L ALT 27 (10-53) U/L Alkaline Phosphatase 124 H (45-117) U/L Troponin I Less than 0.02 L (0.02-0.05) ng/mL Total Protein 6.5 (6.4-8.2) g/dL Albumin 3.2 L (3.4-5.0) g/dL Lipase 88 (73-393) U/L Urine Color (Yellw/Straw) Urine Clarity (Clear) Urine pH (5.0-8.5) Ur Specific [employer] (1.002-1.035) Urine Protein (Neg-Trace) mg/dL Urine Glucose (UA) (Negative) mg/dL Urine Ketones (Negative) mg/dL Urine Occult Blood (Negative) Urine Nitrate (Negative) Urine Bilirubin (Negative) Urine Urobilinogen (Less than 2) mg/dL Ur Leukocyte Esterase (Negative) Urine RBC (0-3) /hpf Urine WBC (0-5) /hpf Ur Squamous Epith Cells (0-5) /hpf Urine Bacteria (None) /hpf Micro UA Comment Ur Microscopic Review Urine Culture Comments Salicylates Less than 1.7 L (2.8-20.0) mg/dL Urine Opiates Screen Pos H (Neg) Acetaminophen Less than 2.0 L (10.0-30.0) mcg/mL Ur Barbiturates Screen Neg (Neg) Ur Amphetamines Screen Neg (Neg) U Benzodiazepines Scrn Pos H (Neg) Urine Cocaine Screen Pos H (Neg) U Cannabinoids Screen Neg (Neg) Serum Alcohol Less than 3 (0-5) mg/dL 09/26/18 Range/Units 01:57 CBC w Diff WBC (4.0-11.0) th/mm3 RBC (4.00-5.30) mil/mm3 Hgb (11.6-15.3) gm/dL Hct (35.0-46.0) % MCV (80.0-100.0) fL MCH (27.0-34.0) pg MCHC (32.0-36.0) % RDW (11.6-17.2) % Plt Count (150-450) th/mm3 MPV (7.0-11.0) fL Neut % (Auto) (16.0-70.0) % Lymph % (Auto) (9.0-44.0) % Henry % (Auto) (0.0-8.0) % Eos % (Auto) (0.0-4.0) % Baso % (Auto) (0.0-2.0) % Neut # (Auto) (1.8-7.7) th/mm3 Lymph # (Auto) (1.0-4.8) th/mm3 Henry # (Auto) (0.0-0.9) th/mm3 Eos # (Auto) (0.0-0.4) th/mm3 Baso # (Auto) (0.0-0.2) th/mm3 WBC Differential Differential Comment PT (9.8-11.6) sec INR Ratio Puncture Site Patient Temperature O2 Saturation (90-100) % ABG pH (7.380-7.420) ABG pCO2 (38-42) mmHg ABG pO2 (61-120) mmHg ABG HCO3 (22-26) mmol/L ABG O2 Content (12.0-20.0) Vol % ABG Base Excess (-2-2) mmol/L ABG Methemoglobin (0-2) % Hemoglobin (12.0-16.0) G/DL Carboxyhemoglobin (0-4) % O2 Delivery Device Inspired O2 % Critical Value Sodium (136-145) meq/L Potassium (3.5-5.1) meq/L Chloride (98-107) meq/L Carbon Dioxide (21.0-32.0) meq/L Anion Gap (5-15) meq/L BUN (7-18) mg/dL Creatinine (0.50-1.00) mg/dL Estimated GFR (>89) mL/min Random Glucose (74-106) mg/dL Calcium (8.5-10.1) mg/dL Magnesium (1.5-2.5) mg/dL Total Bilirubin (0.2-1.0) mg/dL AST (15-37) U/L ALT (10-53) U/L Alkaline Phosphatase (45-117) U/L Troponin I (0.02-0.05) ng/mL Total Protein (6.4-8.2) g/dL Albumin (3.4-5.0) g/dL Lipase (73-393) U/L Urine Color Yellow (Yellw/Straw) Urine Clarity Slightly cloudy (Clear) Urine pH 5.5 (5.0-8.5) Ur Specific [employer] Greater/equal 1.030 (1.002-1.035) Urine Protein Negative (Neg-Trace) mg/dL Urine Glucose (UA) Negative (Negative) mg/dL Urine Ketones Negative (Negative) mg/dL Urine Occult Blood Negative (Negative) Urine Nitrate Negative (Negative) Urine Bilirubin Negative (Negative) Urine Urobilinogen 0.2 (Less than 2) mg/dL Ur Leukocyte Esterase Negative (Negative) Urine RBC 0-3 (0-3) /hpf Urine WBC 6-8 H (0-5) /hpf Ur Squamous Epith Cells 6-10 H (0-5) /hpf Urine Bacteria Few H (None) /hpf Micro UA Comment Culture not ind Ur Microscopic Review Microscopic reviewed Urine Culture Comments Culture not ind Salicylates (2.8-20.0) mg/dL Urine Opiates Screen (Neg) Acetaminophen (10.0-30.0) mcg/mL Ur Barbiturates Screen (Neg) Ur Amphetamines Screen (Neg) U Benzodiazepines Scrn (Neg) Urine Cocaine Screen (Neg) U Cannabinoids Screen (Neg) Serum Alcohol (0-5) mg/dL Imaging Data Radiologist's impression: Chest X-Ray 09/26/18 01:06 CONCLUSION: No acute cardiopulmonary disease. Discharge Plan Discharge Disposition Patient Disposition: 30 Still Patient Discharge Condition Condition: Fair Discharge Details Diagnosis: Drug overdose Physicians Team ED Provider: Allen Lemos Primary Care Provider: Primary Care Ning Hernandez Attending Provider: Charlee Kinsey Discharge Interventions Interventions: Vital Signs Last Done: 09/26/18 03:03 Status ED Status: Admitted Observation Patient
[2018-09-26] MEDS ORDERED: Acetaminophen 325 MG Tablet PO PRN (03:52)
[2018-09-26] MEDS ORDERED: Bisacodyl 10 MG Supp RECTAL PRN (03:52)
[2018-09-26] MEDS ORDERED: Naloxone Inj 0.4 MG/ML Vial IV.PUSH PRN (03:59)
[2018-09-26] MEDS ORDERED: Sod Chloride 0.9% Inj 1,000 ML IV.CONT SCH (04:00)
--- NOTE | 2018-09-26 08:17 | P.HP ---
History of Present Illness Primary Care Physician: No Primary Care Physician Chief Complaint: Heroin overdose, status post CPR History of Present Illness: This is a 33-year-old female patient with a known medical history of IV drug abuse who presented to the ED after being found unresponsive. Supposedly patient received CPR by bystanders and upon arrival patient was found to be in respiratory arrest. She was given IV Narcan and she regained a pulse and respiration. Patient has been in a recovery house for the last week, states she got kicked out yesterday due to being positive for benzodiazepines. She states that she had not taken benzodiazepines for over a week. She got discouraged and her and her fianc decided to use IV heroin last evening prior to this patient had been clean of heroin for a week. Patient was at a friend's house with her fianc and when she was found unresponsive. Patient has been injecting IV drugs for about a year. Patient does states she presented to [facility] in August for right forearm abscess. At that time an I&D of the right forearm abscess was performed and she was given doxycycline and she is completed 2 doses of her doxycycline with improvement of erythema noted. Patient denies any significant family medical history, denies any prior surgeries. Does not admit to smoking half pack per cigarettes a day. - Diagnosis (1) Drug overdose Review of Systems All other systems reviewed negative except as stated in HPI PMFSH - History History Provided By: Patient - Medical History Medical History: Medical History (Last Reviewed 09/26/18 @ 08:57 by Natasha Grant) Anxiety Depression Substance abuse - Family History Family History: Family History (Last Updated 09/26/18 @ 09:14 by Natasha Grant) Other Family history in first degree relatives is unremarkable - Social History I have reviewed the patient's Social History: Yes - Tobacco History Second Hand Smoke Exposure: No Tobacco Use In Past 30 Days: No Smoking Status: Former smoker Tobacco Type: Cigarettes - Alcohol History How Often Do You Have a Drink Containing Alcohol: Never - Substance Use History Substance History: Active Abuse - Substance Use Type Heroin Status: Active Route Used: Intravenously Reason for Use: Increase Energy Level - Travel History Recent Travel in the [place] Within the Last 8 Weeks: No Recent Travel Out of the Country Within the Last 8 Weeks: No - Immunization History Tetanus Immunization: <5 Years Hx Influenza Vaccine This Season: No Medications and Allergies Active Medications: Active Medications Acetaminophen (Tylenol) 650 mg PO Q4H PRN PRN Reason: Temp > 100.4 Bisacodyl (Dulcolax Supp) 10 mg RECTAL DAILY PRN PRN Reason: SEVERE CONSITIPATION Sodium Chloride (Ns Inj) 1,000 mls @ 125 mls/hr IV.CONT .Q8H MP Naloxone HCl (Narcan Inj) 0.4 mg IV.PUSH Q2M PRN PRN Reason: RESPIRATORY DEPRESSION Ondansetron HCl (Zofran Inj) 4 mg IV.PUSH Q6H PRN PRN Reason: NAUSEA OR VOMITING Sennosides (Senokot) 17.2 mg PO Q12H PRN PRN Reason: Moderate Constipation Sodium Chloride (Ns Flush) 2 ml IV.FLUSH PRN PRN PRN Reason: FLUSH AFTER USING IV ACCESS Allergies Allergy/AdvReac Type Severity Reaction Status Date / Time No Known Allergies Allergy Verified 09/26/18 01:07 Home Medications Medication Instructions Recorded Confirmed Type fluoxetine [Prozac] 20 mg PO DAILY 09/09/18 09/26/18 History gabapentin 600 mg PO TID 09/26/18 09/26/18 History Exam Vital signs: Vital Signs 09/26/18 00:56 09/26/18 01:31 09/26/18 03:03 Temperature 98.1 F Pulse Rate 92 H 75 Respiratory Rate 18 16 Blood Pressure 116/77 97/62 L Pulse Oximetry 97 98 98 09/26/18 05:25 Temperature Pulse Rate 69 Respiratory Rate 16 Blood Pressure 99/60 L Pulse Oximetry 98 Intake & Output 09/25/18 09/26/18 09/26/18 18:59 06:59 18:59 Intake Total 1999 Balance 1999 Weight 51.4 kg Intake: IV 1999 NS Inj 1,000 ML @ 1000 mls/hr 1999 IV.SIG BOLUS MP Rx#:[id number] Other: Weight On Admission 51.4 kg Narrative: GENERAL: Well-developed, well-nourished patient in NAD. Drowsy. Multiple track denny. SKIN: Warm and dry. No rash. Right forearm healing cellulitis, erythema improving. HEAD: Normocephalic. Atraumatic. EYES: Pupils equal and round. No scleral icterus. No injection or drainage. ENT: No nasal bleeding or discharge. Mucous membranes pink and moist. NECK: Supple. Trachea midline. CARDIOVASCULAR: Regular rate and rhythm. S1, S2 noted. No murmur appreciated. RESPIRATORY: No accessory muscle use. Clear to auscultation. Breath sounds equal bilaterally. GASTROINTESTINAL: Abdomen soft, non-tender, nondistended. Normoactive bowel sounds x4. MUSCULOSKELETAL: No obvious deformities. Extremities without clubbing, cyanosis , or edema. NEUROLOGICAL: Awake and alert. No obvious cranial nerve deficits. Motor grossly within normal limits. 5/5 muscle strength in bilateral upper and lower extremities. Normal speech. PSYCHIATRIC: Appropriate mood and affect; insight and judgment normal. Results - Labs CBC & Chem 7: 09/26/18 01:55 09/26/18 01:55 Labs: Laboratory Results - last 24 hr 09/26/18 09/26/18 09/26/18 01:32 01:55 01:55 CBC w Diff Auto diff final WBC 5.6 RBC 3.55 L Hgb 9.2 L Hct 29.0 L MCV 81.8 MCH 26.0 L MCHC 31.7 L RDW 19.4 H Plt Count 368 MPV 6.8 L Neut % (Auto) 67.0 Lymph % (Auto) 15.5 Addison % (Auto) 9.7 H Eos % (Auto) 7.5 H Baso % (Auto) 0.3 Neut # (Auto) 3.8 Lymph # (Auto) 0.9 L Addison # (Auto) 0.5 Eos # (Auto) 0.4 Baso # (Auto) 0.0 WBC Differential . Differential Comment . PT 10.2 INR 1.0 Puncture Site Right brachial Patient Temperature 98.6 O2 Saturation 95 ABG pH 7.32 L ABG pCO2 56 H* ABG pO2 98 ABG HCO3 29 H ABG O2 Content 12.0 ABG Base Excess 3.0 H ABG Methemoglobin 1.1 Hemoglobin 8.9 L Carboxyhemoglobin 2.8 O2 Delivery Device Room air Inspired O2 21 Critical Value Yes Sodium Potassium Chloride Carbon Dioxide Anion Gap BUN Creatinine Estimated GFR Random Glucose Calcium Magnesium Total Bilirubin AST ALT Alkaline Phosphatase Troponin I Total Protein Albumin Lipase Urine Color Urine Clarity Urine pH Ur Specific [place] Urine Protein Urine Glucose (UA) Urine Ketones Urine Occult Blood Urine Nitrate Urine Bilirubin Urine Urobilinogen Ur Leukocyte Esterase Urine RBC Urine WBC Ur Squamous Epith Cells Urine Bacteria Micro UA Comment Ur Microscopic Review Urine Culture Comments Salicylates Urine Opiates Screen Acetaminophen Ur Barbiturates Screen Ur Amphetamines Screen U Benzodiazepines Scrn Urine Cocaine Screen U Cannabinoids Screen Serum Alcohol 09/26/18 09/26/18 09/26/18 01:55 01:55 01:57 CBC w Diff WBC RBC Hgb Hct MCV MCH MCHC RDW Plt Count MPV Neut % (Auto) Lymph % (Auto) Addison % (Auto) Eos % (Auto) Baso % (Auto) Neut # (Auto) Lymph # (Auto) Addison # (Auto) Eos # (Auto) Baso # (Auto) WBC Differential Differential Comment PT INR Puncture Site Patient Temperature O2 Saturation ABG pH ABG pCO2 ABG pO2 ABG HCO3 ABG O2 Content ABG Base Excess ABG Methemoglobin Hemoglobin Carboxyhemoglobin O2 Delivery Device Inspired O2 Critical Value Sodium 138 Potassium 4.1 Chloride 104 Carbon Dioxide 29.5 Anion Gap 5 BUN 15 Creatinine 0.78 Estimated GFR 85 L Random Glucose 89 Calcium 7.6 L Magnesium 2.0 Total Bilirubin 0.3 AST 18 ALT 27 Alkaline Phosphatase 124 H Troponin I Less than 0.02 L Total Protein 6.5 Albumin 3.2 L Lipase 88 Urine Color Urine Clarity Urine pH Ur Specific [place] Urine Protein Urine Glucose (UA) Urine Ketones Urine Occult Blood Urine Nitrate Urine Bilirubin Urine Urobilinogen Ur Leukocyte Esterase Urine RBC Urine WBC Ur Squamous Epith Cells Urine Bacteria Micro UA Comment Ur Microscopic Review Urine Culture Comments Salicylates Less than 1.7 L Urine Opiates Screen Pos H Acetaminophen Less than 2.0 L Ur Barbiturates Screen Neg Ur Amphetamines Screen Neg U Benzodiazepines Scrn Pos H Urine Cocaine Screen Pos H U Cannabinoids Screen Neg Serum Alcohol Less than 3 09/26/18 01:57 CBC w Diff WBC RBC Hgb Hct MCV MCH MCHC RDW Plt Count MPV Neut % (Auto) Lymph % (Auto) Addison % (Auto) Eos % (Auto) Baso % (Auto) Neut # (Auto) Lymph # (Auto) Addison # (Auto) Eos # (Auto) Baso # (Auto) WBC Differential Differential Comment PT INR Puncture Site Patient Temperature O2 Saturation ABG pH ABG pCO2 ABG pO2 ABG HCO3 ABG O2 Content ABG Base Excess ABG Methemoglobin Hemoglobin Carboxyhemoglobin O2 Delivery Device Inspired O2 Critical Value Sodium Potassium Chloride Carbon Dioxide Anion Gap BUN Creatinine Estimated GFR Random Glucose Calcium Magnesium Total Bilirubin AST ALT Alkaline Phosphatase Troponin I Total Protein Albumin Lipase Urine Color Yellow Urine Clarity Slightly cloudy Urine pH 5.5 Ur Specific [place] Greater/equal 1.030 Urine Protein Negative Urine Glucose (UA) Negative Urine Ketones Negative Urine Occult Blood Negative Urine Nitrate Negative Urine Bilirubin Negative Urine Urobilinogen 0.2 Ur Leukocyte Esterase Negative Urine RBC 0-3 Urine WBC 6-8 H Ur Squamous Epith Cells 6-10 H Urine Bacteria Few H Micro UA Comment Culture not ind Ur Microscopic Review Microscopic reviewed Urine Culture Comments Culture not ind Salicylates Urine Opiates Screen Acetaminophen Ur Barbiturates Screen Ur Amphetamines Screen U Benzodiazepines Scrn Urine Cocaine Screen U Cannabinoids Screen Serum Alcohol - Imaging Impressions Chest X-Ray 09/26/18 01:06 CONCLUSION: No acute cardiopulmonary disease. Caprini VTE Risk Assessment Caprini VTE Risk Assessment: No/Low Risk (score <= 1) Caprini Risk Assessment Model: Point Value = 1 Point Value = 2 Point Value = 3 Point Value = 5 Age 41-60 Minor surgery BMI > 25 kg/m2 Swollen legs Varicose veins or History of unexplained or recurrent spontaneous Oral contraceptives or hormone replacement Sepsis (< 1 month) Serious lung disease, including pneumonia (< 1 month) Abnormal pulmonary function Acute myocardial infarction Congestive heart failure (< 1 month) History of inflammatory bowel disease Medical patient at bed rest Age 61-74 Arthroscopic surgery Major open surgery (> 45 min) Laparoscopic surgery (> 45 min) Malignancy Confined to bed (> 72 hours) Immobilizing plaster cast Central venous access Age >= 75 History of VTE Family history of VTE Factor V Leiden Prothrombin [id number] Lupus anticoagulant Anticardiolipin antibodies Elevated serum homocysteine Heparin-induced thrombocytopenia Other congenital or acquired thrombophilia Stroke (< 1 month) Elective arthroplasty Hip, pelvis, or leg fracture Acute spinal cord injury (< 1 month) Prophylaxis Regimen: Total Risk Factor Score Risk Level Prophylaxis Regimen 0-1 Low Early ambulation 2 Moderate Order ONE of the following: *Sequential Compression Device (SCD) *Heparin 5000 units SQ BID 3-4 Higher Order ONE of the following medications: *Heparin 5000 units SQ TID *Enoxaparin/Lovenox 40 mg SQ daily (WT < 150 kg, CrCl > 30 mL/min) *Enoxaparin/Lovenox 30 mg SQ daily (WT < 150 kg, CrCl > 10-29 mL/min) *Enoxaparin/Lovenox 30 mg SQ BID (WT < 150 kg, CrCl > 30 mL/min) AND/OR *Sequential Compression Device (SCD) 5 or more Highest Order ONE of the following medications: *Heparin 5000 units SQ TID (Preferred with Epidurals) *Enoxaparin/Lovenox 40 mg SQ daily (WT < 150 kg, CrCl > 30 mL/min) *Enoxaparin/Lovenox 30 mg SQ daily (WT < 150 kg, CrCl > 10-29 mL/min) *Enoxaparin/Lovenox 30 mg SQ BID (WT < 150 kg, CrCl > 30 mL/min) AND *Sequential Compression Device (SCD) Assessment and Plan - Assessment (1) Drug overdose Code(s): T50.901A - Poisoning by unspecified drugs, medicaments and biological substances, accidental (unintentional), initial encounter Status: Acute - Plan This is a 33-year-old female patient with: Status post drug overdose with heroin Status post CPR History of IV drug abuse -Patient presented to the ED by EMS unresponsive in respiratory arrest. Bystanders performed CPR and patient regained pulse and respiration with Narcan IV. -Patient is awake and alert today, is unable to recall events leading to her presentation. -Patient desires to stop IV drug use. Has been using for over a year now. She states she feels much improved since last evening. -Echocardiogram is been ordered, pending. Await results. -Case management has been consulted for assistance in determining safe discharge. Patient states she is not allowed back to the recovery house she was in last week. -Cardiac telemetry reviewed overnight, stable no arrhythmias. EKG reviewed and normal. Right forearm abscess -Patient has been recently started on doxycycline. Will resume. This appears to be improving. DVT prophylaxis. Ambulation. Discharge Planning: Will discharge home hopefully later today after echocardiogram and case management assisting with any support for discharge. Patient will not be able to go back to the recovery how she was in for a week.
--- NOTE | 2018-09-26 08:36 | ECG ---
Date Performed: 09/26/2018 Time Performed: 01:31:49 PTAGE: 33 years EKG: Sinus rhythm POSSIBLE LEFT ATRIAL ENLARGEMENT POSSIBLE RIGHT VENTRICULAR CONDUCTION DELAY BORDERLINE ECG PREVIOUS TRACING : 12/19/2016 04.29 DOCTOR: Aron Rodriguez Interpretating Date/Time 09/26/2018 08:34:29
[2018-09-26 09:40] VITALS: RESP 20
[2018-09-26] MEDS ORDERED: Ketorolac Inj 30 MG/ML (IVP) Vial IV.PUSH ONE (15:12)
[2018-09-26 17:31] VITALS: BP 121/82; PULSE 75; TEMP 98.1; O2SAT 98
--- NOTE | 2018-09-26 18:12 | ECHRPT ---
Indication: CONCLUSIONS The left ventricular systolic function is normal with an estimated ejection fraction in the range of 60-65%. Trace mitral valve regurgitation. Structurally normal tricuspid valve. There is trace tricuspid valve regurgitation. BP: / HR: Rhythm: MEASUREMENTS (Male / Female) Normal Values Technical Quality: 2D ECHO LV Diastolic Diameter PLAX 4.5 cm 4.2 - 5.9 / 3.9 - 5.3 cm LV Systolic Diameter PLAX 3.0 cm IVS Diastolic Thickness 0.8 cm 0.6 - 1.0 / 0.6 - 0.9 cm LVPW Diastolic Thickness 0.8 cm 0.6 - 1.0 / 0.6 - 0.9 cm LV Relative Wall Thickness 0.3 LVOT Diameter 1.8 cm LA Systolic Diameter LX 2.8 cm 3.0 - 4.0 / 2.7 - 3.8 cm LV Ejection Fraction MOD 4C 70.1 % LV Ejection Fraction 4C AL 71.5 % M-MODE Aortic Root Diameter MM 2.4 cm LA Systolic Diameter MM 2.9 cm LA Ao Ratio MM 1.2 AV Cusp Separation MM 1.9 cm DOPPLER AV Peak Velocity 136.0 cm/s AV Peak Gradient 7.4 mmHg LVOT Peak Velocity 108.0 cm/s LVOT Peak Gradient 4.7 mmHg AV Area Cont Eq pk 2.0 cm MV Area PHT 4.0 cm Mitral E Point Velocity 105.0 cm/s Mitral A Point Velocity 59.2 cm/s Mitral E to A Ratio 1.8 LV E' Lateral Velocity 11.5 cm/s Mitral E to LV E' Lateral Ratio 9.1 LV E' Septal Velocity 11.0 cm/s Mitral E to LV E' Septal Ratio 9.5 TR Peak Velocity 227.0 cm/s TR Peak Gradient 20.6 mmHg Right Atrial Pressure 10.0 mmHg Pulmonary Artery Systolic Pressu 30.6 mmHg Right Ventricular Systolic Press 30.6 mmHg PV Peak Velocity 102.0 cm/s PV Peak Gradient 4.2 mmHg FINDINGS LEFT VENTRICLE The left ventricular systolic function is normal with an estimated ejection fraction in the range of 60-65%. Normal left ventricular size. Wall thickness is normal. No regional wall motion abnormalities are present. RIGHT VENTRICLE Normal right ventricular size and systolic function. LEFT ATRIUM The left atrial size is normal. RIGHT ATRIUM The right atrial size is normal. ATRIAL SEPTUM Normal atrial septal thickness AORTA The aortic root and proximal ascending aorta are normal in size on limited imaging. MITRAL VALVE Mild thickening of the mitral valve leaflets. Trace mitral valve regurgitation. AORTIC VALVE Trileaflet aortic valve. No aortic valve stenosis or regurgitation. TRICUSPID VALVE Structurally normal tricuspid valve. There is trace tricuspid valve regurgitation. The estimated pulmonary arterial pressure is 30.6 mmHg. PULMONARY VALVE No pulmonary valve regurgitation or stenosis. VESSELS The inferior vena cava is normal in size. PERICARDIUM No pericardial effusion. Victor M Mosley DO (Electronically Signed) Final Date:26 September 2018 18:12
[2018-09-27] MEDS ORDERED: FLUoxetine 20 MG Capsule PO SCH (09:00)
== END 2018-09-26 20:15 | disposition home or self-care (01) ==
LOC: PHED 00:47 → PHEDA 00:47 → PH3 05:19
PROVIDERS: ADMIT Hospitalist; ATTEND Hospitalist
DX: T40.1X1A Poisoning by heroin, accidental (unintentional), initial encounter; F41.9 Anxiety disorder, unspecified; L02.413 Cutaneous abscess of right upper limb; F32.9 Major depressive disorder, single episode, unspecified; R94.31 Abnormal electrocardiogram [ECG] [EKG]; F17.210 Nicotine dependence, cigarettes, uncomplicated; R09.2 Respiratory arrest